=== PATIENT | male | born 1965 | race Caucasian/White ===

== ENCOUNTER 2018-02-27 09:34 | Emergency (ER) | payer BC, SELFPAY ==
[2018-02-27 09:41] VITALS: BP 142/94; PULSE 70; RESP 16; TEMP 36.8; O2SAT 98
--- NOTE | 2018-02-27 10:01 | DI.REPORT_ITS ---
SYMPTOM/DIAGNOSIS: LEFT KNEE PAIN WITH HYPERFLEXION. LEFT KNEE: 3 views. No acute fracture or dislocation is identified. There does appear to be a small joint effusion. Mild spurring is seen at the posterior patella. No radiopaque foreign bodies are seen in the soft tissues. IMPRESSION: No acute abnormality.
[2018-02-27] MEDS: Lidocaine 5% Patch 1 PATCH TP (10:55)
--- NOTE | 2018-02-27 10:55 | ED.GENADUL ---
Disposition Clinical Impression: Left knee pain Disposition: HOME Condition: Good Instructions: Knee Pain (ED), RICE Therapy (ED) Additional Instructions: Please take medication as directed. Please use the knee splint as directed. Please ambulate carefully, as it is my recommendation to use crutches. Please follow-up with the orthopedic surgeon as soon as possible. If you notice any worsening of your symptoms, or any new symptoms such as vomiting, diarrhea, fever, chills, shortness of breath, chest pain, numbness, weakness, or fainting , please return immediately to the emergency department for reevaluation. Please follow up with your primary care provider as soon as possible for reassessment and reevaluation. As always, it was a pleasure participating in your medical care today. Prescriptions: Acetaminophen [Tylenol Extra Strength] 1,000 mg PO Q6H 5 Days #60 tab Lidocaine 5% [Lidoderm 5% Patch] 1 each TP Q24H #4 patch Referrals: Kristofer Wilson MD [ [facility] STAFF PHYSICIAN] - Medical Decision Making - Medical Decision Making This is a very pleasant 52-year-old male who presents today for evaluation of left knee pain. He had bilateral knee pain for the last month, most likely secondary to arthritis however yesterday he fell and hyperflexed his knee. Physical exam demonstrates notable pain on Nati's test, but no severe joint laxity for the knee. And concern for meniscal injury, and potentially a posterior cruciate ligament injury secondary to the mechanism. The patient is refusing any Motrin secondary to his history of GI ulcers. X-ray reveals no acute fracture. However with his exam I am concerned for meniscal and ligamentous injury. He is able to ambulate without significant difficulty. 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 Had a long discussion with him regarding the importance of ease with his knee, and avoiding any movements that may exacerbate it he understands. I did offer crutches but he does not want these as he still needs to go to work today. I will offer a hinged knee splint for some added support. Lidoderm patch has notably improved his symptoms and he will be sent home with a prescription for this and Tylenol. Discussed the importance of frequent ice, and close orthopedic follow-up for potential knee arthroscopy. The patient understands. He is requesting Dr. Wilson, specifically since his sees him. We discussed red flags which returned the patient understands. I have extensively reviewed the treatment plan and discharge instructions with the patient. I have addressed all patient concerns at this time. The patient was made aware of what symptoms to monitor for that would warrant a return to the emergency department. Discussed the plan with the patient, they demonstrate verbal understanding and agreement with our assessment and plan at this time. History of Present Illness - General Chief complaint: Orthopedic Stated complaint: KNEE INJURY Time Seen by Provider: 02/27/18 10:01 - History of Present Illness Initial comments: This is a pleasant 52-year-old male with a past medical history of diabetes mellitus, traumatic subdural hematoma, GI ulcers who presents today for left knee pain. He has a history of an arthroscopic procedure on his knees in the past for arthritis, but he does not recall which. He presents today with left knee pain for the last month. It has been bilateral, however yesterday he fell, and had hyperflexion of his left knee. Since then he has had severe pain, clicking when he walks, and his knee has been giving out on him. Pain is worsened with ambulation and movement. It is improved by Tylenol. He does not take Motrin secondary to his history of ulcers. He denies any numbness, tingling, hip pain, calf pain, or foot pain. He denies any other associated symptoms. He denies chest pain, rash, fever, headache, vision change, vomiting or diarrhea. He denies any IV or illicit drug use. He denies any pertinent past family history. Patient has no other complaints at this time. - Related Data Saccharomyces Boulardii [Digestive Probiotic] 250 mg PO BID 12/17/14 Cetirizine HCl [Zyrtec] 10 mg PO HS 06/16/16 Mupirocin 2% Oint. [Bactroban 2% Ointment] 1 gm TP TID #1 tube 06/18/16 Ondansetron HCl 4 mg PO Q6H PRN #30 tab-cap 06/20/16 Blood Sugar Diagnostic [Freestyle Lite Test Strips] 1 each MC BID #100 strip 09/01/16 Lancets [Freestyle Lancets] 1 each MC BID #200 each 12/22/16 Cyclobenzaprine HCl 10 mg PO HS #30 tab-cap 01/26/17 Allopurinol 2 tab PO DAILY #180 tab-cap 09/19/17 Pantoprazole Sodium 40 mg PO DAILY #90 tab-cap 09/19/17 Tamsulosin HCl 0.4 mg PO HS #90 tab-cap 09/19/17 Liraglutide [Victoza 2-Miguel] 1.2 mg SQ DAILY #1 pack 10/05/17 Insulin Glargine [Lantus Solostar] 45 units SC DAILY #1 box 10/26/17 Pen Needle, Diabetic [Ultra-Fine Original Pen Needle] 1 each MC BID #100 10/26/17 Acetaminophen [Tylenol Extra Strength] 1,000 mg PO Q6H 5 Days #60 tab 02/27/18 Lidocaine 5% [Lidoderm 5% Patch] 1 each TP Q24H #4 patch 02/27/18 Allergies Allergy/AdvReac Type Severity Reaction Status Date / Time ciprofloxacin [From Cipro] Allergy Intermediate Skin Rash Unverified 02/27/18 09:47 nitroglycerin AdvReac Severe 6 sec Unverified 02/27/18 09:47 heart pause zolpidem AdvReac Severe Hallucinati Unverified 02/27/18 09:47 ons fluoxetine AdvReac Intermediate Tremor Unverified 02/27/18 09:47 levetiracetam [From Keppra] AdvReac Intermediate Restless Unverified 02/27/18 09:47 Review of Systems Other: 10 point review of systems was performed, pertinent positives and negatives are noted in the history of present illness. Past Medical History - Past Medical History Medical history: diabetes sleep apnea Surgical history: appendectomy, cholecystectomy, EGD, other (gastric bypass) - Social History Alcohol use: occasionally Drug use: none General Exam - Other Other exam information: 1.Const: Well-nourished, Well-developed, appearing stated age 2.Eyes: PERRL, no conjunctival injection, and symmetrical lids. 3.ENT: Atraumatic external nose and ears. Moist MM. Neck: Symmetric, trachea midline, No thyromegaly. 4.CVS: +S1/S2, No murmurs or gallops. Peripheral pulses 2+ and equal in all extremities. Brisk capillary refill in all extremities. 5.RESP: Unlabored respiratory effort. Clear to auscultation bilaterally. No wheezes rales or rhonchi 6.GI: Soft, Nontender/Nondistended, No hepatosplenomegaly. No guarding or rebound. 7.MSK: Normocephalic/Atraumatic, Extremities w/o deformity No cyanosis or clubbing, patient demonstrates minimal pinpoint tenderness over the right lateral aspect of the left knee, as well as the posterior popliteal region. Mild pain with flexion extension. No significant laxity for the anterior drawer, or posterior drawer test. No significant laxity on lateral bending. Notable pain with Nati test, suggestive of meniscal injury. No significant swelling or erythema. 8.Skin: Warm, Dry. No rashes or lesions. 9.Neuro: machine printer II-XII grossly intact. Sensation grossly intact, no focal neurologic deficits. 10.Psych: (AAO) x3. Appropriate mood and affect Course Vital Signs - 24 hr 02/27/18 09:41 Temperature 36.8 C Pulse 70 Respiratory 16 Rate Blood Pressure 142/94 Pulse Oximetry 98
--- NOTE | 2018-02-27 10:58 | ED.GENADUL_ITS ---
Disposition Clinical Impression: Left knee pain Disposition: HOME Condition: Good Instructions: Knee Pain (ED), RICE Therapy (ED) Additional Instructions: Please take medication as directed. Please use the knee splint as directed. Please ambulate carefully, as it is my recommendation to use crutches. Please follow-up with the orthopedic surgeon as soon as possible. If you notice any worsening of your symptoms, or any new symptoms such as vomiting, diarrhea, fever, chills, shortness of breath, chest pain, numbness, weakness, or fainting , please return immediately to the emergency department for reevaluation. Please follow up with your primary care provider as soon as possible for reassessment and reevaluation. As always, it was a pleasure participating in your medical care today. Prescriptions: Acetaminophen [Tylenol Extra Strength] 1,000 mg PO Q6H 5 Days #60 tab Lidocaine 5% [Lidoderm 5% Patch] 1 each TP Q24H #4 patch Referrals: Kristofer Wilson MD [ [facility] STAFF PHYSICIAN] - Medical Decision Making - Medical Decision Making This is a very pleasant 52-year-old male who presents today for evaluation of left knee pain. He had bilateral knee pain for the last month, most likely secondary to arthritis however yesterday he fell and hyperflexed his knee. Physical exam demonstrates notable pain on Nati's test, but no severe joint laxity for the knee. And concern for meniscal injury, and potentially a posterior cruciate ligament injury secondary to the mechanism. The patient is refusing any Motrin secondary to his history of GI ulcers. X- ray reveals no acute fracture. However with his exam I am concerned for meniscal and ligamentous injury. He is able to ambulate without significant difficulty. 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 Had a long discussion with him regarding the importance of ease with his knee, and avoiding any movements that may exacerbate it he understands. I did offer crutches but he does not want these as he still needs to go to work today. I will offer a hinged knee splint for some added support. Lidoderm patch has notably improved his symptoms and he will be sent home with a prescription for this and Tylenol. Discussed the importance of frequent ice, and close orthopedic follow-up for potential knee arthroscopy. The patient understands. He is requesting Dr. Wilson, specifically since his sees him. We discussed red flags which returned the patient understands. I have extensively reviewed the treatment plan and discharge instructions with the patient. I have addressed all patient concerns at this time. The patient was made aware of what symptoms to monitor for that would warrant a return to the emergency department. Discussed the plan with the patient, they demonstrate verbal understanding and agreement with our assessment and plan at this time. History of Present Illness - General Chief complaint: Orthopedic Stated complaint: KNEE INJURY Time Seen by Provider: 02/27/18 10:01 - History of Present Illness Initial comments: This is a pleasant 52-year-old male with a past medical history of diabetes mellitus, traumatic subdural hematoma, GI ulcers who presents today for left knee pain. He has a history of an arthroscopic procedure on his knees in the past for arthritis, but he does not recall which. He presents today with left knee pain for the last month. It has been bilateral, however yesterday he fell, and had hyperflexion of his left knee. Since then he has had severe pain, clicking when he walks, and his knee has been giving out on him. Pain is worsened with ambulation and movement. It is improved by Tylenol. He does not take Motrin secondary to his history of ulcers. He denies any numbness, tingling, hip pain, calf pain, or foot pain. He denies any other associated symptoms. He denies chest pain, rash, fever, headache, vision change, vomiting or diarrhea. He denies any IV or illicit drug use. He denies any pertinent past family history. Patient has no other complaints at this time. - Related Data Saccharomyces Boulardii [Digestive Probiotic] 250 mg PO BID 12/17/14 Cetirizine HCl [Zyrtec] 10 mg PO HS 06/16/16 Mupirocin 2% Oint. [Bactroban 2% Ointment] 1 gm TP TID #1 tube 06/18/16 Ondansetron HCl 4 mg PO Q6H PRN #30 tab-cap 06/20/16 Blood Sugar Diagnostic [Freestyle Lite Test Strips] 1 each MC BID #100 strip 10/13 Lancets [Freestyle Lancets] 1 each MC BID #200 each 12/22/16 Cyclobenzaprine HCl 10 mg PO HS #30 tab-cap 01/26/17 Allopurinol 2 tab PO DAILY #180 tab-cap 09/19/17 Pantoprazole Sodium 40 mg PO DAILY #90 tab-cap 09/19/17 Tamsulosin HCl 0.4 mg PO HS #90 tab-cap 09/19/17 Liraglutide [Victoza 2-Miguel] 1.2 mg SQ DAILY #1 pack 10/05/17 Insulin Glargine [Lantus Solostar] 45 units SC DAILY #1 box 10/26/17 Pen Needle, Diabetic [Ultra-Fine Original Pen Needle] 1 each MC BID #100 Acetaminophen [Tylenol Extra Strength] 1,000 mg PO Q6H 5 Days #60 tab 02/27/18 Lidocaine 5% [Lidoderm 5% Patch] 1 each TP Q24H #4 patch 02/27/18 Allergies Allergy/AdvReac Type Severity Reaction Status Date / Time ciprofloxacin [From Cipro] Allergy Intermediate Skin Rash Unverified 02/27/18 09 :47 nitroglycerin AdvReac Severe 6 sec Unverified 02/27/18 09:47 heart pause zolpidem AdvReac Severe Hallucinati Unverified 02/27/18 09:47 ons fluoxetine AdvReac Intermediate Tremor Unverified 02/27/18 09:47 levetiracetam [From Keppra] AdvReac Intermediate Restless Unverified 02/27/18 09 :47 Review of Systems Other: 10 point review of systems was performed, pertinent positives and negatives are noted in the history of present illness. Past Medical History - Past Medical History Medical history: diabetes sleep apnea Surgical history: appendectomy, cholecystectomy, EGD, other (gastric bypass) - Social History Alcohol use: occasionally Drug use: none General Exam - Other Other exam information: 1.Const: Well-nourished, Well-developed, appearing stated age 2.Eyes: PERRL, no conjunctival injection, and symmetrical lids. 3.ENT: Atraumatic external nose and ears. Moist MM. Neck: Symmetric, trachea midline, No thyromegaly. 4.CVS: +S1/S2, No murmurs or gallops. Peripheral pulses 2+ and equal in all extremities. Brisk capillary refill in all extremities. 5.RESP: Unlabored respiratory effort. Clear to auscultation bilaterally. No wheezes rales or rhonchi 6.GI: Soft, Nontender/Nondistended, No hepatosplenomegaly. No guarding or rebound. 7.MSK: Normocephalic/Atraumatic, Extremities w/o deformity No cyanosis or clubbing, patient demonstrates minimal pinpoint tenderness over the right lateral aspect of the left knee, as well as the posterior popliteal region. Mild pain with flexion extension. No significant laxity for the anterior drawer , or posterior drawer test. No significant laxity on lateral bending. Notable pain with Nati test, suggestive of meniscal injury. No significant swelling or erythema. 8.Skin: Warm, Dry. No rashes or lesions. 9.Neuro: it applications analyst II-XII grossly intact. Sensation grossly intact, no focal neurologic deficits. 10.Psych: (AAO) x3. Appropriate mood and affect Course Vital Signs - 24 hr 02/27/18 09:41 Temperature 36.8 C Pulse 70 Respiratory 16 Rate Blood Pressure 142/94 Pulse Oximetry 98
[2018-02-27 11:21] VITALS: BP 145/86; PULSE 78; RESP 16; TEMP 36.7; O2SAT 99
== END 2018-02-27 11:26 | disposition home or self-care (01) ==
PROVIDERS: Emergency Provider Student in an Organized Health Care Education/Training Program; PCP Family Medicine
DX: M25.562 Pain in left knee (principal); E11.9 Type 2 diabetes mellitus without complications; Z79.4 Long term (current) use of insulin
CPT/HCPCS: 29505; 73562; 99283; L1810

== ENCOUNTER 2018-04-24 13:19 | Outpatient (CLI) | payer BC, SELFPAY ==
--- NOTE | 2018-04-24 10:45 | DI.RAD_ITS ---
SYMPTOM/DIAGNOSIS: RIGHT KNEE PAIN. OA RIGHT KNEE RIGHT KNEE: There is no evidence of gross joint space narrowing. Periarticular hypertrophic spurring is identified and a small calcification is noted adjacent to the lateral condyle of the femur, likely representing an old collateral ligament injury There are degenerative changes involving the patellofemoral joint. SUMMARY: Findings consistent with moderate DJD.
== END 2018-04-24 13:39 ==
PROVIDERS: PCP Family Medicine; Visit Provider Family Medicine
DX: M25.561 Pain in right knee (principal); M17.11 Unilateral primary osteoarthritis, right knee
CPT/HCPCS: 73564

== ENCOUNTER 2018-06-03 15:08 | Outpatient (CLI) | payer BC, SELFPAY ==
[2018-06-03 19:01] LABS: Hemoglobin A1C 7.8 % (4.5-6.2)
== END 2018-06-03 15:28 ==
PROVIDERS: PCP Family Medicine; Visit Provider Family Medicine
DX: E11.9 Type 2 diabetes mellitus without complications (principal)
CPT/HCPCS: 36415; 83036

== ENCOUNTER 2018-07-02 07:04 | Outpatient (CLI) | payer BC, SELFPAY ==
[2018-07-02 08:15] LABS: Abs Immature Grans 0.03 k/cumm (0.0-0.09); Absolute Basophil Count 0.04 k/cumm (0.0-0.2); Absolute Eosinophil Count 0.09 k/cumm (0.0-0.7); Absolute Lymphocyte Count 1.14 k/cumm (1.2-3.4); Absolute Monocyte Count 0.35 k/cumm (0.11-0.7); Absolute Neutrophil Count 3.19 k/cumm (1.2-6.7); Basophils % 0.8; Eosinophils % 1.9; HCT 44.1 % (40.0-50.0); Immature Grans % 0.6; Lymphocytes % 23.6; Mean Corpuscular Hemoglobin 32.8 pg (27.0-33.0); Mean Corpuscular Volume 96.5 fL (80-95); Mean Platelet Volume 9.7 fL (8.0-11.0); Monocytes % 7.2; Neutrophils % 65.9; Platelet Count 217 x1000/uL (130-400); RBC 4.57 m/cumm (4.50-6.00); RBC Distribution Width 11.7 % (11.8-14.1); White Blood Cell Count 4.84 k/cumm (4.4-10.8)
[2018-07-02 08:30] LABS: Bilirubin Negative (Negative); Blood Negative (Negative); Clarity Clear; Glucose 100 mg/dL (Negative); Ketones Trace mg/dL (Negative); Leukocyte Esterase Negative (Negative); Nitrite Negative (Negative); Specific Gravity >= 1.030 (1.005-1.025); Urobilinogen 0.2 EU/dL (Up TO 0.2); pH 5.5 (5-8)
[2018-07-02 08:57] LABS: ALT 64 U/L (12-78); AST 25 U/L (15-37); Albumin 4.4 g/dL (3.4-5.0); Alkaline Phosphatase 52 U/L (46-116); Anion Gap 11.6 mmol/L (3-11); BUN 19 mg/dL (7-18); Bilirubin, Total 0.4 mg/dL (0.2-1.0); CO2 27.4 mmol/L (21.0-32.0); CREATININE 0.88 mg/dL (0.70-1.30); Calcium 9.3 mg/dL (8.5-10.1); Chloride 100 mmol/L (98-107); Glucose 218 mg/dL (70-100); Potassium 4.3 mmol/L (3.5-5.1); Sodium 139 mmol/L (136-145); TSH 1.58 uIU/mL (0.358-3.74); Total Protein 7.6 g/dL (6.4-8.2)
== END 2018-07-02 07:24 ==
PROVIDERS: PCP Family Medicine; Visit Provider Family Medicine
DX: R53.83 Other fatigue (principal)
CPT/HCPCS: 36415; 80053; 81003; 84443; 85025

== ENCOUNTER 2018-08-05 07:02 | Outpatient (CLI) | payer BC, SELFPAY ==
[2018-08-05 14:37] LABS: Anion Gap 11.1 mmol/L (3-11); BUN 16 mg/dL (7-18); CO2 27.9 mmol/L (21.0-32.0); CREATININE 1.03 mg/dL (0.70-1.30); Calcium 9.8 mg/dL (8.5-10.1); Chloride 102 mmol/L (98-107); Glucose 205 mg/dL (70-100); Potassium 4.1 mmol/L (3.5-5.1); Sodium 141 mmol/L (136-145)
== END 2018-08-05 07:22 ==
PROVIDERS: PCP Family Medicine; Visit Provider Internal Medicine Gastroenterology
DX: K31.84 Gastroparesis (principal); D12.3 Benign neoplasm of transverse colon
CPT/HCPCS: 36415; 80048

== ENCOUNTER 2019-02-05 08:16 | Outpatient (CLI) | payer BC, SELFPAY ==
[2019-02-05 09:45] LABS: Hemoglobin A1C 10.1 % (4.5-6.2)
[2019-02-05 10:14] LABS: ALT 65 U/L (12-78); AST 24 U/L (15-37); Albumin 4.2 g/dL (3.4-5.0); Alkaline Phosphatase 64 U/L (46-116); Anion Gap 11.4 mmol/L (3-11); BUN 16 mg/dL (7-18); Bilirubin, Total 0.5 mg/dL (0.2-1.0); CO2 28.6 mmol/L (21.0-32.0); CREATININE 0.91 mg/dL (0.70-1.30); Calcium 9.3 mg/dL (8.5-10.1); Chloride 98 mmol/L (98-107); Glucose 314 mg/dL (70-100); Potassium 4.9 mmol/L (3.5-5.1); Sodium 138 mmol/L (136-145); Total Protein 7.1 g/dL (6.4-8.2)
== END 2019-02-05 08:36 ==
PROVIDERS: PCP Family Medicine; Visit Provider Family Medicine
DX: E11.9 Type 2 diabetes mellitus without complications (principal)
CPT/HCPCS: 36415; 80053; 83036

== ENCOUNTER 2019-07-20 09:32 | Observation (INO) | payer BC, SELFPAY ==
[2019-07-20] VITALS (9 sets, daily range): BP systolic 130–158; BP diastolic 76–100; PULSE 66–83; RESP 14–18; TEMP 36.3–37.2; O2SAT 92–97
[2019-07-20] MEDS: Lactated Ringers 1,000 ML 80 ML IV ×2 (11:28→14:52)
[2019-07-20] MEDS: Ondansetron 4 MG/2 ML VIAL IVP (11:38)
--- NOTE | 2019-07-20 11:54 | HPE_ITS ---
Date of service: 07/20/19 Time of Service: 11:54 Assessment and Plan Assessment and plan (1) Esophageal foreign body: Status: Acute Assessment and plan: I advised EGD with removal of foreign body and p ossible dilation. The procedure and risks of perforation with need for surgery discussed. Dilation may not improve symptoms or may need to be repeated in the future. May consider biopsy for eosinophilic esophagitis. The patient agrees to proceed. History of Present Illness Narrative: This patient presented to the [facility] last night after feeling that a piece of steak become stuck in his esophagus. The patient was given glucagon and soda without improvement. He was able to control secretions and swallow small months of water so was discharged home with close follow-up planrd. Today he reports that he is still unable to swallow significant amounts of water so due to concerns about dehydration and an ongoing esophageal foreign body he is brought in for upper endoscopy. The patient's history is significant for a Oren fundoplication with good control of his reflux. He is chronically on a PPI for a history of a perforated ulcer for which he had a distal gastrectomy. He does report that food sometimes becomes stuck in his esophagus but will pass after a minute or so. This commonly occurs with rice or meat and happens infrequently, perhaps once a month. He has not had a prior dilation. 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 last gouty attack 2003; on allopurinol H/O renal calculi (Chronic) h/o subdural hematoma after head trauma (Chronic) [place] [facility] [place] Obstructive sleep apnea (Chronic) Osteoarthritis (Chronic) Surgical History (Updated 05/30/18 @ 21:25 by Edward Rojas MD) Colonoscopy - [facility] (03/27/13) DR. DENT Social History (Updated 04/24/18 @ 09:51 by Melissa Gibson) Smoking/Tobacco Use Status: Never Drug use: Never Substance use type: does not use Do you feel safe at home: Yes Do you feel safe in your relationship?: Yes Meds Home Medications and Allergies Home Medications Medication Instructions Recorded Confirmed Type Digest Probiotic (S.boulardii) 250 mg PO BID 12/17/14 07/20/19 History Zyrtec 10 mg PO HS 06/16/16 07/20/19 History mupirocin 1 gm TOPICAL TID #1 tube 06/18/16 07/20/19 Rx FreeStyle Lite Strips #100 strip 09/01/16 07/17/19 History lancets [FreeStyle Lancets] #200 ea 12/22/16 07/17/19 History cyclobenzaprine 10 mg PO HS #30 tab-cap 01/26/17 07/20/19 History baclofen 10 mg tablet 10 mg PO TID PRN #60 tab 04/25/18 07/20/19 Rx clindamycin phosphate 1 % topical 1 applic TP BID #60 ml 10/01/18 07/17/19 Rx solution allopurinol 100 mg tablet 200 mg PO DAILY #180 tab-cap 10/23/18 07/17/19 Rx ondansetron HCl 4 mg tablet 4 mg PO Q6H PRN #30 tab-cap 10/23/18 07/20/19 Rx pantoprazole 40 mg tablet,delayed 40 mg PO DAILY #90 tab-cap 10/23/18 07/20/19 Rx release pen needle, diabetic 29 gauge x #100 each 10/23/18 07/17/19 Rx 1/2 tamsulosin 0.4 mg capsule 0.4 mg PO HS #90 tab-cap 10/23/18 07/20/19 Rx Domperidone 10 mg PO BID 02/07/19 07/20/19 History flash glucose scanning reader #1 each 02/07/19 07/17/19 Rx liraglutide 0.6 mg/0.1 mL (18 mg/3 See Rx Instructions SC .COMPLEX #9 05/07/19 07/20/19 Rx mL) subcutaneous pen injector ml flash glucose sensor #3 each 07/17/19 07/17/19 Rx insulin glargine 100 unit/mL (3 50 unit SUB-Q DAILY #15 ml 07/17/19 07/20/19 Rx mL) subcutaneous pen acetaminophen [Tylenol Extra 1,000 mg PO Q6H PRN 07/20/19 07/20/19 History Strength] allopurinol 200 mg PO DAILY 07/20/19 07/20/19 History Allergies Allergy/AdvReac Type Severity Reaction Status Date / Time ciprofloxacin [From Cipro] Allergy Intermediate Skin Rash Verified 07/17/19 16:04 nitroglycerin AdvReac Severe 6 sec Verified 07/17/19 16:04 heart pause zolpidem AdvReac Severe Hallucinati Verified 07/17/19 16:04 ons fluoxetine AdvReac Intermediate Tremor Verified 07/17/19 16:04 levetiracetam [From Keppra] AdvReac Intermediate Restless Verified 07/17/19 16:04 sulfamethoxazole AdvReac Intermediate Verified 07/17/19 16:04 [From Bactrim] trimethoprim [From Bactrim] AdvReac Intermediate Verified 07/17/19 16:04 Exam Const General: healthy appearing and not in acute distress Nutritional Appearance: well nourished Orientation: oriented x3 HENMT Head: normal to inspection Eyes Sclera: sclerae normal Pupils: PERRL Neck Neck: no lymphadenopathy Resp Effort & Inspection: normal respiratory effort Auscultation: clear to auscultation bilaterally Cardio Rate: regular rate Rhythm: regular rhythm GI Inspection: non-distended Palpation: soft, no hepatosplenomegaly, no hernias and nontender Skin General skin exam: no rashes or lesions noted Neuro General: alert Cognition: normal cognition Extrem General: normal to inspection Psych Affect: normal affect Attitude: cooperative Results Last Vital Signs Temp 98.2 F 07/20/19 10:59 Pulse 77 07/20/19 10:59 Resp 16 07/20/19 10:59 BP 158/96 H 07/20/19 10:59 Pulse Ox 97 07/20/19 10:59
--- NOTE | 2019-07-20 12:03 | PDOC.DSDIS_ITS ---
Discharge Plan Disposition Patient Disposition: HOME Condition: Good Discharge Details Reason For Visit: FOREIGN BODY Admit Date/Time: 07/20/19 10:17 Admit Provider: Mesha Myers Attending Provider: Mesha Myers Primary Care Provider: Edward Rojas [facility] Course Hospital Course: The patient was taken to the OR and had partial clearing of food within the esophagus. He was returned to med/surg and had a trial of clear liquids then was discharged to home. Home Meds and New Rx's Prescriptions: Continued Lantus Solostar U-100 Insulin 100 unit/mL (3 mL) insulin pen 50 unit Sub-Q DAILY Qty: 15 RF: 11 (DME) FreeStyle Zaid 14 Day Sensor Kit See Rx Instructions .ROUTE .MEDSUPPLY Qty: 3 RF: 4 baclofen 10 mg tablet 10 mg PO TID PRN (Reason: For muscle spasm) Qty: 60 RF: 2 clindamycin phosphate 1 % solution 1 applic TP BID Qty: 60 RF: 3 Domperidone 10 mg PO BID RF: 0 (DME) FreeStyle Zaid 14 Day [place]ess misc See Rx Instructions .ROUTE .MEDSUPPLY Qty: 1 RF: 4 Digest Probiotic (S.boulardii) 250 MG capsule 250 mg PO BID RF: 0 (DME) FreeStyle Lite Strips 1 EACH strip 1 ea Miscellaneous BID Qty: 100 RF: 4 (DME) lancets [FreeStyle Lancets] 1 EACH misc 1 ea Miscellaneous BID Qty: 200 RF: 4 cyclobenzaprine 10 MG tablet 10 mg PO HS Qty: 30 RF: 2 (DME) pen needle, diabetic [BD Ultra-Fine Orig Pen Needle] 29 gauge x 1/2 needle 1 ea Miscellaneous BID Qty: 100 RF: 4 pantoprazole 40 mg tablet,delayed release (DR/EC) 40 mg PO DAILY Qty: 90 RF: 4 allopurinol 100 mg tablet 200 mg PO DAILY Qty: 180 RF: 4 tamsulosin 0.4 mg capsule 0.4 mg PO HS Qty: 90 RF: 3 ondansetron HCl 4 mg tablet 4 mg PO Q6H PRN Qty: 30 RF: 2 Victoza 3-Miguel 0.6 mg/0.1 mL (18 mg/3 mL) pen injector See Rx Instructions SC .COMPLEX Qty: 9 RF: 4 Zyrtec 10 MG capsule 10 mg PO HS RF: 0 mupirocin 22 GM ointment 1 gm Topical TID Qty: 1 RF: 0 allopurinol 100 mg Tablet 200 mg PO DAILY RF: 0 acetaminophen [Mapap Extra Strength] 500 MG tablet 1,000 mg PO Q6H PRNRF: 0 Discharge Instructions Additional Instructions: Findings: Particles of food were impacted in the esophagus. A portion was pushed down into the stomach but due to the volume and soft nature of the food, it could not all be cleared. This should pass now that the passage has been partly cleared. Follow up: Keep your appointment as scheduled with Dr. Armstrong Please call if you develop: fevers >101.5 Nausea or Vomiting Chest or Abdominal pain that is not transient DAY SURGERY UNIT POST EGD INSTRUCTIONS 1. Because there will be medication in your system for the next 24 hours, you may feel a little sleepy. Your coordination will be affected. Therefore: a. Do not drive or operate dangerous equipment for 24 hours. b. Do not drink alcohol beverages for 24 hours (not even beer). c. Plan to go home and rest for the day. 2. Generally there are no restrictions on your activity after a day or so has gone by, but you may feel a bit fatigued for a few days. 3 After you arrive home you may have a light meal and return to a normal diet as you can tolerate it without feeling sick to your stomach. 4. After surgery, you may feel pain or discomfort. This should be only transient, but if it persists please contact your doctor. 5. If there are any questions regarding the findings of your procedure, please feel free to contact your doctor. 6. If you are unable to contact your doctor with a problem, contact the hospital at [phone]. 7. Continue all your regular medications unless directed otherwise. I understand the above instructions and have no questions. Signature of Patient or Responsible Adult Escort Date/Time Name of Responsible Adult Escort Signature of Nurse Date/Time Activity:: Activity as Tolerated Equipment/Supplies:: No Equipment Needed Diet:: Clears liquids today and then soft for two days Discharge Orders Discharge Orders: Discharge Order (Routine); Ordered 07/20/19 Ordered By: Mesha Myers DS: Diagnosis Discharge Diagnosis (1) Esophageal foreign body: Status: Acute
--- NOTE | 2019-07-21 09:02 | ENDO_ITS ---
DATE OF PROCEDURE July 20, 2019 PREOPERATIVE DIAGNOSIS Esophageal foreign body. POSTOPERATIVE DIAGNOSIS Esophageal foreign body. PROCEDURE EGD with removal of esophageal foreign body. SURGEON Mesha Myers M.D. ANESTHESIA General endotracheal. INDICATIONS This is 54-year-old man with fairly frequent dysphagia. This has been ongoing since laparoscopic Oren fundoplication several years ago. The food will usually pass after a minute or so. He had required an upper endoscopy about seven or eight years ago for an esophageal foreign body. He apparently has some esophageal dysmotility with the diagnosis of achalasia being considered by his hospital unit clerk. He was eating steak last evening and felt it become lodged. He has been able to control his secretions and take in very small sips of water. PROCEDURE DESCRIPTION The patient was placed supine on the operating table and after induction of general anesthetic was positioned up onto his left side. The scope was advanced into his esophagus under direct visualization. About half way down the esophagus, food was encountered. This was essentially stacked up in the distal half of the esophagus. It was actually fairly soft and I was able to pass the scope past it into his gastric remnant. The patient had a distal gastrectomy in the past. I was able to push a portion of the food bolus into the stomach, but it was not one complete piece. The food was fairly soft and would adhere to the side of the esophagus. I tried removing some with a Armas Net, but it would not open adequately to acquire any particles of significant volume. I also used cold forceps to drag some pieces into the stomach, but again, the pieces were so small and the volume of food large enough that this was not practically feasible. Since there was a clear passage, my hope was that I had cleared the major obstruction and the patient will be able to clear the residual food particles on his own. I did not see a significant distal esophageal stricture. There was some angulation at the GE junction perhaps from his prior Oren. The quality of the esophagus was slightly difficult to assess due to the food adherent to the wall. The patient tolerated the procedure and was stable to Recovery. The plan will be to see if he tolerates clear liquids, and if so discharge. He will follow up with his hospital unit clerk as scheduled previously. CC: Edward Rojas M.D. Pedro Armstrong D.O.
== END 2019-07-20 15:55 | disposition home or self-care (01) ==
PROVIDERS: Admitting Provider Surgery; PCP Family Medicine; Visit Provider Surgery
PROC: 0DC68ZZ Extirpation of Matter from Stomach, Via Natural or Artificial Opening Endoscopic (ICD-10-PCS; CPT 43247; principal; 2019-07-20 11:45)
DX: T18.108A Unspecified foreign body in esophagus causing other injury, initial encounter (principal); K22.2 Esophageal obstruction; R13.10 Dysphagia, unspecified; Z90.3 Acquired absence of stomach [part of]
CPT/HCPCS: 43247; 99236; G0378; J1100; J2405

== ENCOUNTER 2019-10-07 11:16 | Outpatient (CLI) | payer BC, SELFPAY ==
[2019-10-07 12:27] LABS: CREATININE 0.97 mg/dL (0.70-1.30)
== END 2019-10-07 11:36 ==
PROVIDERS: PCP Family Medicine; Visit Provider Family Medicine
DX: R13.19 Other dysphagia (principal); Z01.812 Encounter for preprocedural laboratory examination
CPT/HCPCS: 36415; 82565

== ENCOUNTER 2019-10-08 07:17 | Outpatient (CLI) | payer BC, SELFPAY ==
--- NOTE | 2019-10-08 12:45 | DI.CT_ITS ---
EXAM: CT NECK W CLINICAL HISTORY: DYSPHAGIA LOCALIZED TO LEFT SIDE OF NECK, R13.10. TECHNIQUE: Imaging Protocol: Axial computed tomography images with coronal and sagittal reformatted images were created and reviewed CONTRAST MATERIAL: Intravenous: Omnipaque 350 Contrast volume:100 ml Contrast route:IV - Oral: No COMPARISON: No exams were available for comparison FINDINGS: Parotids/submandibular/thyroid gland: Normal. Lymphadenopathy: None. Carotids/Jugular: Mild calcification at the common carotid bulbs. No significant stenosis. Coronar y artery calcifications and mild aortic calcifications are also seen. Soft tissues: The floor the mouth is unremarkable. The epiglottis and vocal cords are within normal limits. Images through both lung apices are unremarkable. Sinuses: There has been previous sinus surgery. Mucosal thickening is seen throughout. There is a sma ll air-fluid level in the right maxillary sinus. The mastoid air cells appear clear. The orbits are u nremarkable. IMPRESSION: Sinus disease. No evidence of neck mass. RADIATION DOSE DELIVERED: DATA REPOSITORY: All CT scans at this facility are submitted to the National Radiology Data Registry (NRDR) Dose Index Registry (DIR) with the [employer] (A[employer]). RADIATION OPTIMIZATION: All CT scans at this facility use at least one of these dose optimization te chniques: automated exposure control; mA and/or kV adjustment per patient size (includes targeted exa ms where dose is matched to clinical indication); or iterative reconstruction.
[2019-10-08] MEDS: Omnipaque 350 MG/ML 100 ML BTL IV (13:20)
== END 2019-10-08 07:37 ==
PROVIDERS: PCP Family Medicine; Visit Provider Family Medicine
DX: R13.19 Other dysphagia (principal); I65.23 Occlusion and stenosis of bilateral carotid arteries
CPT/HCPCS: 70491; J3490

== ENCOUNTER 2020-07-16 04:19 | Outpatient (CLI) | payer BC, SELFPAY ==
--- NOTE | 2020-07-16 08:37 | DI.CT_ITS ---
EXAM: CT RENAL COLIC WO CLINICAL HISTORY: H/O CALCULUS OF KIDNEY,Z87.442. TECHNIQUE: Imaging Protocol: Axial computed tomography images with coronal and sagittal reformatted images were created and reviewed. COMPARISON: CT ABD PELVIS WITH CONTRAST from 06/16/2016 FINDINGS: ABDOMEN: Lung Bases: Normal where visualized. Liver: There is diffuse decreased attenuation of the liver consistent with fatty infiltration. No me asurable mass. Gallbladder and biliary tract: Status post cholecystectomy. No biliary ductal dilatation. Pancreas: Normal density, no abnormal calcifications or inflammatory process. Spleen: Normal. Kidneys: Normal size, contour and axis.2 mm nonobstructing stone in the inferior pole of the right ki dney. Nonobstructing stones seen in the left kidney. There are 2 each of which is approximately 2 m m in size. Stable cyst in the left kidney. No hydronephrosis. Adrenal glands: No mass is seen. Lymph nodes: Within normal limits. Abdominal Aorta: Abdominal portion non-dilated. Mild atherosclerosis. PELVIS: Bladder:Symmetric distention, no gross wall thickening. Bowel: No evidence of bowel obstruction. The patient is status post Daysi-en-Y procedure. There is a moderate amount of stool throughout the colon. No evidence of acute appendicitis. Diverticulosis i n the sigmoid colon but no evidence of acute diverticulitis. Peritoneal cavity: No ascites, collection or mesenteric inflammatory response Reproductive organs: Mildly enlarged prostate gland. Bones: Degenerative changes are present in the spine. Soft Tissues: Within normal limits. IMPRESSION: Bilateral nephrolithiasis. No evidence of hydronephrosis. RADIATION DOSE DELIVERED: 1,152.3mGy.cm Total DLP DATA REPOSITORY: All CT scans at this facility are submitted to the National Radiology Data Registry (NRDR) Dose Index Registry (DIR) with the [employer] (ACR). RADIATION OPTIMIZATION: All CT scans at this facility use at least one of these dose optimization te chniques: automated exposure control; mA and/or kV adjustment per patient size (includes targeted exa ms where dose is matched to clinical indication); or iterative reconstruction.
== END 2020-07-16 04:39 ==
PROVIDERS: PCP Nurse Practitioner; Visit Provider Urology
DX: N20.0 Calculus of kidney (principal)
CPT/HCPCS: 74176

== ENCOUNTER 2020-10-05 03:28 | Outpatient (CLI) | payer BC, SELFPAY ==
[2020-10-05 15:48] LABS: CREATININE 0.9 mg/dL (0.70-1.30)
[2020-10-05 15:56] LABS: Calculated LDL 103 mg/dL (<100); Cholesterol 183 mg/dL (<200); HDL Cholesterol 38 mg/dL (40-60); Triglyceride 213 mg/dL (<150)
== END 2020-10-05 03:29 | disposition home or self-care (01) ==
LOC: LBO 03:28
PROVIDERS: Family Medicine; PCP Nurse Practitioner; Visit Provider Nurse Practitioner
DX: I10 Essential (primary) hypertension (principal); Z13.6 Encounter for screening for cardiovascular disorders
CPT/HCPCS: 36415; 80061; 82565

== ENCOUNTER 2020-11-12 08:15 | Outpatient (CLI) | payer BC, SELFPAY ==
[2020-11-13 15:04] LABS: COVID-19 RT-PCR UVMMC Result Negative (Negative)
== END 2020-11-12 08:16 | disposition home or self-care (01) ==
PROVIDERS: PCP Nurse Practitioner; Visit Provider Nurse Practitioner
DX: Z20.822 Contact with and (suspected) exposure to COVID-19 (principal)
CPT/HCPCS: U0003

== ENCOUNTER 2020-11-17 09:08 | Outpatient (CLI) | payer BC, SELFPAY ==
[2020-11-18 11:52] LABS: COVID-19 RT-PCR UVMMC Result Negative (Negative)
== END 2020-11-17 09:09 | disposition home or self-care (01) ==
PROVIDERS: PCP Nurse Practitioner; Visit Provider Nurse Practitioner
DX: Z20.822 Contact with and (suspected) exposure to COVID-19 (principal)
CPT/HCPCS: U0003

== ENCOUNTER 2020-11-22 10:23 | Outpatient (CLI) | payer BC, SELFPAY ==
--- NOTE | 2020-11-22 09:45 | DI.RAD_ITS ---
EXAM: XR SHOULDER RT COMPLETE 2+V CLINICAL HISTORY: pain. TECHNIQUE: 2D digital imaging was performed. COMPARISON: No exams were available for comparison FINDINGS: There is no evidence of fracture or dislocation. However, on the outlet view there 2 calcifications in the subacromial space consistent with calcific tendinitis-bursitis. Degenerative changes in the A C joint as well as an osteophytic ridge seen on the undersurface of the acromion are most probably ca using impingement here. No osseous lesions. IMPRESSION: DATA REPOSITORY: RADIATION DOSE DELIVERED:
--- NOTE | 2020-11-22 09:45 | DI.RAD_ITS ---
EXAM: XR KNEE RT 4V AP,LAT,ANNA,PAT CLINICAL HISTORY: pain. TECHNIQUE: 2D digital imaging was performed. COMPARISON: No exams were available for comparison FINDINGS: There is no evidence of acute fracture or prominent joint effusion. However, there are significant o steoarthritic degenerative changes and there also multiple calcified intra-articular bodies evident w ithin the knee joint both anteriorly and posteriorly. There is also a calcification laterally, later al to the lateral femoral condyle. Also small calcification in the region of the medial collateral l igament. IMPRESSION: Degenerative changes. Multiple calcified loose intra-articular bodies evident DATA REPOSITORY: RADIATION DOSE DELIVERED:
--- NOTE | 2020-11-22 09:45 | DI.RAD_ITS ---
EXAM: XR KNEE LT 3V AP,LAT,ANNA CLINICAL HISTORY: pain. TECHNIQUE: 2D digital imaging was performed. COMPARISON: CR XR KNEE RT 4V AP,LAT,ANNA,PAT from 11/22/2020 FINDINGS: There is no evidence of fracture although there does appear to be a joint effusion. There is pre pat ellar soft tissue swelling also noted. No significant narrowing of the medial lateral compartments o n the weight-bearing view. No marginal osteophytes in the mediolateral compartments although there m arginal osteophytes in the patellofemoral compartment evident. IMPRESSION: DATA REPOSITORY: RADIATION DOSE DELIVERED:
== END 2020-11-22 10:24 | disposition home or self-care (01) ==
LOC: DIORS 10:23
PROVIDERS: PCP Nurse Practitioner; Referring Provider Nurse Practitioner; Visit Provider Physician Assistant Surgical
DX: M25.511 Pain in right shoulder (principal); M75.31 Calcific tendinitis of right shoulder; M25.562 Pain in left knee; M25.462 Effusion, left knee; M25.561 Pain in right knee; M17.11 Unilateral primary osteoarthritis, right knee; M23.41 Loose body in knee, right knee
CPT/HCPCS: 73562; 73030; 73564

== ENCOUNTER 2021-02-10 13:36 | Outpatient (REF) | payer BC, SELFPAY ==
[2021-02-10 21:07] LABS: Hemoglobin A1C 9.2 % (<5.7)
[2021-02-11 22:29] LABS: Cholesterol 205 mg/dL (<200); HDL Cholesterol 31 mg/dL (40-60); Triglyceride 613 mg/dL (<150)
[2021-02-12 13:19] LABS: LDL CHOLESTEROL 106 mg/dL (<100)
== END 2021-02-10 13:37 | disposition home or self-care (01) ==
LOC: LBN 13:36
PROVIDERS: PCP Nurse Practitioner; Visit Provider Nurse Practitioner
DX: E78.5 Hyperlipidemia, unspecified (principal); E11.9 Type 2 diabetes mellitus without complications; Z79.4 Long term (current) use of insulin
CPT/HCPCS: 80061; 83721; 83036

== ENCOUNTER → 2021-02-14 01:31 | Outpatient (CLI) | payer BC, SELFPAY ==
--- NOTE | 2021-02-14 08:26 | DI.RAD_ITS ---
Exam(s) XR TIB/FIB LT EXAM: XR TIB/FIB LT CLINICAL HISTORY: pain, hx surgery,m25.562. TECHNIQUE: 2D digital imaging was performed. COMPARISON: CR XR KNEE LT 3V AP,LAT,ANNA from 11/22/2020 CR XR KNEE LT 3V AP,LAT,ANNA from 11/22/2020 FINDINGS: There healed adjacent fracture sites at the midshaft of the tibia and fibula. No acute fractures dasha dent. No radiopaque foreign body. No osseous lesions seen IMPRESSION: DATA REPOSITORY: RADIATION DOSE DELIVERED:
== END ==
PROVIDERS: PCP Nurse Practitioner; Visit Provider Nurse Practitioner
DX: M25.562 Pain in left knee (principal); Z87.81 Personal history of (healed) traumatic fracture
CPT/HCPCS: 73590

== ENCOUNTER 2021-05-20 02:11 | Outpatient (CLI) | payer BC, SELFPAY ==
[2021-05-20 08:00] LABS: Hemoglobin A1C 6.4 % (<5.7)
[2021-05-20 09:05] LABS: Calculated LDL 61 mg/dL (<100); Cholesterol 125 mg/dL (<200); HDL Cholesterol 41 mg/dL (40-60); Triglyceride 115 mg/dL (<150)
== END 2021-05-20 02:12 | disposition home or self-care (01) ==
LOC: LBO 02:11
PROVIDERS: PCP Nurse Practitioner; Visit Provider Nurse Practitioner
DX: E78.5 Hyperlipidemia, unspecified (principal); E11.9 Type 2 diabetes mellitus without complications; Z79.4 Long term (current) use of insulin
CPT/HCPCS: 36415; 80061; 83036

== ENCOUNTER 2021-06-08 15:23 | Outpatient (REF) | payer BC, SELFPAY ==
[2021-06-10 07:52] LABS: COVID-19 RT-PCR UVMMC Result Positive (Negative)
== END 2021-06-08 15:24 | disposition home or self-care (01) ==
LOC: LBN 15:23
PROVIDERS: PCP Nurse Practitioner; Visit Provider Family Medicine
DX: Z20.822 Contact with and (suspected) exposure to COVID-19 (principal); R50.9 Fever, unspecified
CPT/HCPCS: U0003

== ENCOUNTER 2021-06-10 12:19 | Outpatient (CLI) | payer BC, SELFPAY ==
[2021-06-10] MEDS: Normal Saline 500 ML 30 ML IV (14:30)
[2021-06-10 14:37] VITALS: BP 126/80; PULSE 90; RESP 18; TEMP 37.3; O2SAT 94
[2021-06-10 14:42] VITALS: BP 135/87; PULSE 92; RESP 20; TEMP 36.8; O2SAT 98
[2021-06-10 14:54] VITALS: BP 111/81; PULSE 83; RESP 18; TEMP 36.7; O2SAT 95
[2021-06-10 15:24] VITALS: BP 117/82; PULSE 87; RESP 20; TEMP 36.3; O2SAT 95
[2021-06-10 16:03] VITALS: BP 123/86; PULSE 89; RESP 18; TEMP 36.9; O2SAT 95
== END 2021-06-10 12:20 | disposition home or self-care (01) ==
LOC: INF 12:20
PROVIDERS: PCP Nurse Practitioner; Visit Provider Family Medicine
DX: U07.1 COVID-19 (principal)
CPT/HCPCS: 96365

== ENCOUNTER 2021-10-13 09:00 | Outpatient (CLI) | payer BC, SELFPAY ==
--- NOTE | 2021-10-13 09:00 | RT.EKG_ITS ---
APPROVED REPORT Exam: Resting ECG Reason for Exam: annual Patient Location: O HR:70 bpm ECG Measurements Heart Rate 70 AXIS PA 194 P 44 QRSd 95 QRS 0 QT 402 T [id number] QTc 436 Conclusion Sinus rhythm...normal P axis, V-rate 60- 99 Normal Electrocardiogram
== END 2021-10-13 09:01 | disposition home or self-care (01) ==
LOC: DI.CM 09:03
PROVIDERS: PCP Nurse Practitioner; Visit Provider Nurse Practitioner
DX: Z00.00 Encounter for general adult medical examination without abnormal findings (principal)
CPT/HCPCS: 93010

== ENCOUNTER 2021-11-29 10:32 | Outpatient (CLI) | payer BC, SELFPAY ==
--- NOTE | 2021-11-29 09:30 | DI.RAD_ITS ---
Exam(s) XR SHOULDER RT COMPLETE 2+V EXAM: XR SHOULDER RT COMPLETE 2+V CLINICAL HISTORY: right shoulder pain. TECHNIQUE: 2D digital imaging was performed. COMPARISON: CR XR SHOULDER LT COMPLETE 2+V from 11/29/2021 FINDINGS: Two views No evidence of fracture or dislocation or abnormal soft tissue calcifications. There is some degener ative change evident the AC joint. Also osteophytic ridge on the undersurface of the acromion. Thes e findings may be causing an element of impingement upon the rotator cuff mechanism. On the axial images there is a sclerotic density noted in the humeral head. IMPRESSION: Findings as above. Recommend follow-up MRI. DATA REPOSITORY: RADIATION DOSE DELIVERED:
--- NOTE | 2021-11-29 09:30 | DI.RAD_ITS ---
Exam(s) XR SHOULDER LT COMPLETE 2+V EXAM: XR SHOULDER LT COMPLETE 2+V CLINICAL HISTORY: left shoulder pain. TECHNIQUE: 2D digital imaging was performed. COMPARISON: CR XR SHOULDER RT COMPLETE 2+V from 11/22/2020 FINDINGS: Two views There is no evidence of fracture or dislocation. There are no calcifications in subacromial space. There is, however, small 1-2 millimeter calcific density off the inferior tip of the osseous glenoid. This may represent loose body, labral calcification, or possibly sequelae of subtle Bankart lesion. There is no significant narrowing of the glenohumeral joint nor of the subacromial space. There ar e mild degenerative changes in the AC joint. IMPRESSION: DATA REPOSITORY: RADIATION DOSE DELIVERED:
== END 2021-11-29 10:33 | disposition home or self-care (01) ==
LOC: DIORS 10:32
PROVIDERS: PCP Nurse Practitioner; Referring Provider Nurse Practitioner; Visit Provider Student in an Organized Health Care Education/Training Program
DX: M25.511 Pain in right shoulder (principal); M25.811 Other specified joint disorders, right shoulder; M25.512 Pain in left shoulder; M85.812 Other specified disorders of bone density and structure, left shoulder
CPT/HCPCS: 73030

== ENCOUNTER 2021-12-29 01:19 | Outpatient (CLI) | payer BC, SELFPAY ==
--- NOTE | 2021-12-29 10:00 | DI.MRI_ITS ---
Exam(s) MR UPPER JOINT RT WO EXAM: MR UPPER JOINT RT WO CLINICAL HISTORY: R SHOULDER PAIN,tendinitis,traumatic tear,m75.21,s46.011a TECHNIQUE: Multiplanar multisequence MRI of the shoulder was performed. COMPARISON: MR MRI R UPPER JOINT WO CONT from 12/05/2013 CR XR SHOULDER LT COMPLETE 2+V from 11/29/2021 CR XR SHOULDER RT COMPLETE 2+V from 11/29/2021 FINDINGS: MARROW:There is no evidence of fracture, Hill-Sachs deformity, nor ominous osseous lesions. ROTATOR CUFF MECHANISM: AC JOINT/ACROMIUM: There are no significant degenerative changes in the AC joint, more so than 2014 a nd there is an element of impingement upon the supraspinatus tendon at this level. This is related t o hypertrophy tissue and undersurface osteophytes at this level. The undersurface of the acromion is flat. The acromion does not appear to be downsloping.. There is no evidence of os acromiale. Supraspinatus: There is a full-thickness tear of the most anterior fibers of the supraspinatus tendon on the anterior aspect of the greater tuberosity. This has slightly increased since the prior 2013 MRI study. There is, however, no retraction of the musculotendinous junction and no significant musc le atrophy. Infraspinatus: No obvious tear but there is now a focus of signal dropout associated with the infrasp inatus insertional fibers measuring approximately 12 by 4 by 5 millimeters, most probably calcific de nsity at this level, not evident on the 2014 study. Teres Minor: Intact. No evidence of tear nor muscle atrophy. Subscapularis/anterior cuff: Intact. No abnormal signal at the level of the multipennate insertional fibers. No significant tear nor atrophy. BICEPS TENDON: Normally position in the intertubercular groove. No evidence of tear. Some fluid noted in its tendon sheath consistent with element of tenosynovitis. LABRUM: There is some regularity of the superior labrum posterior to the biceps insertion consistent with probable SLAP-type tearing. There is no high signal associated with the labrum but the labral s urface is irregular. The posterior labrum appears intact. Anterior labrum appears intact. Inferior labrum appears intact as does the inferior glenohumeral ligament. No evidence of Bankart lesion. GLENOHUMERAL JOINT: No joint effusion. Some fluid is seen in the long head biceps tendon consistent with an element of tenosynovitis. No degenerative subarticular cysts. The inferior glenohumeral liga ment is intact. QUADRILATERAL SPACE: No evidence of mass in the region of the axillary nerve and dorsal circumflex hu meral vessels. Visualized triceps muscle at this level appears unremarkable. IMPRESSION: 1. There is an area of full-thickness tearing in the most anterior fibers of the supraspinatus-rotato r cuff tendon, this area of signal abnormality mildly increased in size from the prior MRI study of M ay 2014 there is no retraction musculotendinous junction and there is no significant supraspinatus mu scle atrophy. There is impingement at the AC joint level, particularly by downgoing osteophyte on th e clavicular side of the joint. 2. No obvious tear of the infraspinatus but there is a 12 x 4 x 5 millimeter focus of well-defined hy pointensity intimately associated with the insertional fibers of the infraspinatus upon the greater t uberosity, most probably an element of calcific tendinitis at this level. This finding was not evide nt on the 2013 MRI study. 3. Deficiency of the superior labrum noted towards its posterior aspect. Although this is not associ ated with abnormal high signal, possibility of a element of chronic SLAP-tear is consideration. Ther e is no evidence of paralabral cyst. No other areas of labral tearing identified. 4. Other findings as above DATA REPOSITORY:
== END 2021-12-29 01:39 ==
LOC: DI 01:20
PROVIDERS: PCP Nurse Practitioner; Visit Provider Student in an Organized Health Care Education/Training Program
DX: M75.21 Bicipital tendinitis, right shoulder (principal); S46.011A Strain of muscle(s) and tendon(s) of the rotator cuff of right shoulder, initial encounter
CPT/HCPCS: 73221

== ENCOUNTER 2022-02-20 04:11 | Outpatient (CLI) | payer BC, SELFPAY ==
[2022-02-20 14:28] LABS: Abs Immature Grans 0.03 10^3/uL (0.0-0.06); Absolute Basophil Count 0.04 10^3/uL (0.0-0.2); Absolute Eosinophil Count 0.15 10^3/uL (0.0-0.7); Absolute Lymphocyte Count 0.89 10^3/uL (1.2-3.4); Absolute Monocyte Count 0.49 10^3/uL (0.1-0.8); Absolute Neutrophil Count 3.69 10^3/uL (1.2-6.7); Basophils % 0.8; Eosinophils % 2.8; HGB 13.1 g/dL (13.5-17.5); Immature Grans % 0.6; Lymphocytes % 16.8; MCH 32.3 pg (27.0-33.0); MCHC 33.6 % (32.0-36.0); MCV 96 fL (80-95); MPV 9.7 fL (8.0-11.0); Monocytes % 9.3; Neutrophils % 69.7; Platelet Count 181 10^3/uL (130-400); RBC 4.05 10^6/uL (4.36-5.78); RDW 11.3 % (11.8-14.1); RDW-SD 39.8 fL; WBC 5.29 10^3/uL (4.4-10.8)
[2022-02-20 14:50] LABS: Hemoglobin A1C 7.7 % (<5.7)
[2022-02-20 15:17] LABS: Vitamin B12 593 pg/mL (193-986)
== END 2022-02-20 04:12 | disposition home or self-care (01) ==
LOC: LBO 04:11
PROVIDERS: PCP Nurse Practitioner; Visit Provider Nurse Practitioner
DX: E11.40 Type 2 diabetes mellitus with diabetic neuropathy, unspecified (principal); R53.83 Other fatigue; I10 Essential (primary) hypertension; R51.9 Headache, unspecified; R20.0 Anesthesia of skin
CPT/HCPCS: 36415; 82607; 83036; 84443; 85025

== ENCOUNTER 2022-04-06 03:03 | Outpatient (CLI) | payer BC, SELFPAY ==
[2022-04-06 12:26] LABS: Iron 116 ug/dL (65-175); Total Iron Binding Capacity 312 ug/dL (250-450); Transferrin Sat 37 % (20-55)
[2022-04-06 13:05] LABS: Ferritin 335 ng/mL (26-388); Potassium 4.6 mmol/L (3.5-5.1)
== END 2022-04-06 03:04 | disposition home or self-care (01) ==
LOC: LOS 03:03
PROVIDERS: PCP Nurse Practitioner; Visit Provider Family Medicine
DX: D64.9 Anemia, unspecified (principal); I10 Essential (primary) hypertension
CPT/HCPCS: 36415; 82565; 82728; 83540; 83550; 84132

== ENCOUNTER 2022-08-02 10:43 | Outpatient (CLI) | payer BC, SELFPAY ==
[2022-08-02 08:58] LABS: ALT 42 U/L (16-63); AST 18 U/L (15-37); Alkaline Phosphatase 63 U/L (46-116); Anion Gap 8.3 mmol/L (3-11); BUN 22 mg/dL (7-18); Bilirubin, Total 0.6 mg/dL (0.2-1.0); CO2 29.7 mmol/L (21.0-32.0); CREATININE 0.9 mg/dL (0.70-1.30); Calcium 9.3 mg/dL (8.5-10.1); Calculated LDL 110 mg/dL (<100); Chloride 100 mmol/L (98-107); Cholesterol 173 mg/dL (<200); Estimated GFR 98.38 (mL/min/1.73m2); Glucose 230 mg/dL (74-106); HDL Cholesterol 38 mg/dL (40-60); Sodium 138 mmol/L (136-145); Total Protein 7.6 g/dL (6.4-8.2); Triglyceride 125 mg/dL (<150)
[2022-08-02 09:12] LABS: COMMENT (LAB VIEW ONLY) 184.92 mg/dL; PROTEIN 15.7 mg/dL; Prot/Crea Ur Ratio 0.08
== END 2022-08-02 10:44 | disposition home or self-care (01) ==
LOC: LBO 10:44
PROVIDERS: PCP Family Medicine
DX: E11.9 Type 2 diabetes mellitus without complications (principal)
CPT/HCPCS: 36415; 80053; 80061; 82565; 84156

== ENCOUNTER 2022-12-21 14:12 | Outpatient (REF) | payer BC, SELFPAY ==
[2022-12-21 15:14] LABS: COMMENT (LAB VIEW ONLY) 178.24 mg/dL; Microalb ug/mg Crea 3.1 ug/mg Cr
== END 2022-12-21 14:13 | disposition home or self-care (01) ==
LOC: LBN 14:12
PROVIDERS: PCP Family Medicine; Visit Provider Family Medicine
DX: E11.9 Type 2 diabetes mellitus without complications (principal)
CPT/HCPCS: 82043; 82570

== ENCOUNTER 2023-09-04 22:33 | Emergency (ER) | payer BC, SELFPAY ==
[2023-09-04 22:37] VITALS: BP 175/95; PULSE 88; RESP 16; TEMP 36.8; O2SAT 98
--- NOTE | 2023-09-04 22:45 | RT.EKG_ITS ---
APPROVED REPORT Exam: Resting ECG Reason for Exam: dizziness Patient Location: E HR:83 bpm ECG Measurements Heart Rate 83 AXIS NJ 186 P 43 QRSd 96 QRS 15 QT 376 T 42 QTc 443 Conclusion Sinus rhythm...normal P axis, V-rate 60- 99 Physician: no stemi
[2023-09-04] MEDS: Lactated Ringers 1,000 ML 1000 ML IV (22:53)
[2023-09-04 22:55] LABS: Abs Immature Grans 0.04 10^3/uL (0.0-0.06); Absolute Basophil Count 0.05 10^3/uL (0.0-0.2); Absolute Lymphocyte Count 0.65 10^3/uL (1.2-3.4); Absolute Monocyte Count 0.55 10^3/uL (0.1-0.8); Absolute Neutrophil Count 6.82 10^3/uL (1.2-6.7); Basophils % 0.6; Eosinophils % 2.4; HCT 41.7 % (40.0-50.0); HGB 14.4 g/dL (13.5-17.5); Immature Grans % 0.5; Lactate 0.9 mmol/L (0.6-1.4); Lymphocytes % 7.8; MCH 32.5 pg (27.0-33.0); MCHC 34.5 % (32.0-36.0); MCV 94 fL (80-95); MPV 9.3 fL (8.0-11.0); Monocytes % 6.6; Neutrophils % 82.1; Platelet Count 205 10^3/uL (130-400); RBC 4.43 10^6/uL (4.36-5.78); RDW 11.5 % (11.8-14.1); RDW-SD 39.7 fL; WBC 8.31 10^3/uL (4.4-10.8)
--- NOTE | 2023-09-04 22:57 | W.ED.GENAD ---
HPI General Date/Time Provider Initiated Documentation: 09/04/23 22:34. HPI Narrative: This is a very pleasant 58-year-old male with an extensive past medical history of previous chronic subdural hematoma with cranial surgery and it is being monitored at [facility], and multiple abdominal surgeries, appendectomy, cholecystectomy, duodenal perforation, Oren procedure, Daysi-en-Y procedure with jejunostomy, previous abdominal wound infection, history of both gastroparesis and dumping syndrome ironically, diabetes on insulin, who presents today for evaluation of diarrhea. Patient states that he has had chronic diarrhea since last April. It is been persistent and watery in nature. Patient was on Mounjaro for control of his diabetes, there was concern that this may have been a component of his diarrhea. He stopped this just over a month ago. Unfortunately this did not change his symptoms. He comes in tonight because there is a notable worsening of his diarrhea. He had a cooked hamburger earlier today, and then a can of tuna fish this evening. Diarrhea began this morning and was profuse. He has had 25 episodes of watery diarrhea. The nature of the stooling has been consistent since April however the frequency is notably increased. Patient is scheduled to see Dr. Stewart his hand cutter apprentice later this month, but has not been able to yet. Of note on historical questioning, the patient does state that he did travel in early April to [place], where he did eat out some. The onset of the initial diarrhea appears to be around there somewhere. The diarrhea has never been bloody. Tonight he did get lightheaded but did not syncopized. He denies any vision changes headache or chest pain. He admits to some mild abdominal achiness but no focal abdominal pain. He denies any recent antibiotic use. Last antibiotic that was used was Augmentin over 2 months ago for sinus infection. Patient has no other complaints at this time. Related Data Home Medications Medication Instructions Recorded Confirmed cetirizine 10 mg capsule (Zyrtec) 10 mg PO HS 06/16/16 09/04/23 lancets 28 gauge (FreeStyle #200 ea 12/22/16 09/04/23 Lancets) Domperidone 10 mg PO BID 02/07/19 09/04/23 acetaminophen 500 mg tablet (Mapap 1,000 mg PO Q6H PRN 07/20/19 09/04/23 Extra Strength) triamcinolone acetonide 0.1 % 1 applic topical PRN 11/08/21 09/04/23 topical cream allopurinol 100 mg tablet 200 mg (2 x 100 mg) PO DAILY #180 09/30/22 09/04/23 tab-caps blood-glucose transmitter (Dexcom #1 ea 10/30/22 09/04/23 G6 Transmitter device) pregabalin 50 mg capsule (Lyrica) 50 mg PO BID #60 caps 12/21/22 09/04/23 blood-glucose meter,continuous #1 ea 01/05/23 09/04/23 (Dexcom G6 Marina Manager) blood-glucose sensor (Dexcom G6 #3 ea 01/05/23 09/04/23 Sensor device) cyclobenzaprine 10 mg tablet 10 mg PO TID PRN muscle spasm #14 04/12/23 09/04/23 tabs lisinopril 10 mg tablet 10 mg PO DAILY #90 tabs 05/16/23 09/04/23 blood sugar diagnostic (FreeStyle #100 strips 06/27/23 09/04/23 Lite Strips) amoxicillin 875 mg-potassium 1 tab PO BID sinusitis #14 tabs 06/28/23 09/04/23 clavulanate 125 mg tablet tirzepatide 5 mg/0.5 mL 5 mg (0.5 mL) subcut QWEEK #2 mL 06/28/23 09/04/23 subcutaneous pen injector insulin aspart U-100 100 unit/mL 5 unit (0.05 mL) subcut TID #15 mL 08/15/23 09/04/23 (3 mL) subcutaneous pen (Novolog FlexPen U-100 Insulin aspart) insulin glargine U-300 conc 300 88 unit (0.2933 mL) subcut DAILY 08/15/23 09/04/23 unit/mL (3 mL) subcutaneous pen #99 mL (Toujeo Max U-300 SoloStar) pantoprazole 40 mg tablet,delayed 40 mg PO DAILY #90 tab-caps 08/15/23 09/04/23 release tamsulosin 0.4 mg capsule 0.4 mg PO HS #90 tab-caps 08/15/23 09/04/23 pen needle, diabetic 29 gauge x #100 ea 09/03/23 09/04/23 1/2 (BD Ultra-Fine Original Pen Needle) Previous Rx's Medication Instructions Recorded allopurinol 100 mg tablet 200 mg (2 x 100 mg) PO DAILY #180 09/30/22 tab-caps blood-glucose transmitter (Dexcom #1 ea 10/30/22 G6 Transmitter device) pregabalin 50 mg capsule (Lyrica) 50 mg PO BID #60 caps 12/21/22 blood-glucose meter,continuous #1 ea 01/05/23 (Dexcom G6 Marina Manager) blood-glucose sensor (Dexcom G6 #3 ea 01/05/23 Sensor device) cyclobenzaprine 10 mg tablet 10 mg PO TID PRN muscle spasm #14 04/12/23 tabs lisinopril 10 mg tablet 10 mg PO DAILY #90 tabs 05/16/23 blood sugar diagnostic (FreeStyle #100 strips 06/27/23 Lite Strips) amoxicillin 875 mg-potassium 1 tab PO BID sinusitis #14 tabs 06/28/23 clavulanate 125 mg tablet tirzepatide 5 mg/0.5 mL 5 mg (0.5 mL) subcut QWEEK #2 mL 06/28/23 subcutaneous pen injector insulin aspart U-100 100 unit/mL 5 unit (0.05 mL) subcut TID #15 mL 08/15/23 (3 mL) subcutaneous pen (Novolog FlexPen U-100 Insulin aspart) insulin glargine U-300 conc 300 88 unit (0.2933 mL) subcut DAILY 08/15/23 unit/mL (3 mL) subcutaneous pen #99 mL (Toujeo Max U-300 SoloStar) pantoprazole 40 mg tablet,delayed 40 mg PO DAILY #90 tab-caps 08/15/23 release tamsulosin 0.4 mg capsule 0.4 mg PO HS #90 tab-caps 08/15/23 pen needle, diabetic 29 gauge x #100 ea 09/03/2307/31 (BD Ultra-Fine Original Pen Needle) Allergies Allergy/AdvReac Type Severity Reaction Status Date / Time nitroglycerin AdvReac Severe 6 sec Verified 09/04/23 23:23 heart pause zolpidem AdvReac Severe Hallucinati Verified 09/04/23 23:23 ons fluoxetine AdvReac Intermediate Tremor Verified 09/04/23 23:23 gabapentin AdvReac Intermediate fatigue Verified 09/04/23 23:23 levetiracetam [From Keppra] AdvReac Intermediate Restless Verified 09/04/23 23:23 sulfamethoxazole AdvReac Intermediate Verified 09/04/23 23:23 [From Bactrim] tirzepatide AdvReac Intermediate gastropares Verified 09/04/23 23:23 is trimethoprim [From Bactrim] AdvReac Intermediate Verified 09/04/23 23:23 General Stated Complaint: Nausea/Vomit/Diar FABIO: 3 Review of Systems All systems reviewed & are unremarkable except as noted in HPI and below Exam Narrative Exam Narrative: 1.Const: Well-nourished, Well-developed, appearing stated age 2.Eyes: PERRL, no conjunctival injection, and symmetrical lids. 3.ENT: Atraumatic external nose and ears. Notably dry MM. Neck: Symmetric, trachea midline, No thyromegaly. 4.CVS: +S1/S2, No murmurs or gallops. Peripheral pulses 2+ and equal in all extremities. Brisk capillary refill in all extremities. 5.RESP: Unlabored respiratory effort. Clear to auscultation bilaterally. No wheezes rales or rhonchi 6.GI: Soft, Nontender/Nondistended, No hepatosplenomegaly. No guarding or rebound. No focal tenderness throughout. 7.MSK: Normocephalic/Atraumatic, Extremities w/o deformity or ttp No cyanosis or clubbing, Normal movement of all extremities 8.Skin: Warm, Dry. No rashes or lesions. 9.Neuro: wine maker II-XII grossly intact. Sensation grossly intact, no focal neurologic deficits. 10.Psych: (AAO) x3. Appropriate mood and affect Course Vital Signs Vital signs: Vital Signs Temperature 36.8 C 09/04/23 22:37 Pulse 88 09/04/23 22:37 Respiratory Rate 16 09/04/23 22:37 Blood Pressure 175/95 H 09/04/23 22:37 Pulse Oximetry 98 09/04/23 22:37 Temperature 36.8 C 09/04/23 22:37 Temperature Source Temporal Artery Scan 09/04/23 22:37 Pulse 88 09/04/23 22:37 Respiratory Rate 16 09/04/23 22:37 Blood Pressure 175/95 H 09/04/23 22:37 Blood Pressure Position Supine 09/04/23 22:37 Pulse Oximetry 98 09/04/23 22:37 Pain Level 0 09/04/23 22:37 Lab/Test Results Lab/Test Results: Laboratory Tests Range/Units 09/04/23 22:50 WBC (4.4-10.8) 10^3/uL 8.31 RBC (4.36-5.78) 10^6/uL 4.43 Hgb (13.5-17.5) g/dL 14.4 Hct (40.0-50.0) % 41.7 MCV (80-95) fL 94 MCH (27.0-33.0) pg 32.5 MCHC (32.0-36.0) % 34.5 RDW (11.8-14.1) % 11.5 L Plt Count (130-400) 10^3/uL 205 MPV (8.0-11.0) fL 9.3 Immature Gran % 0.5 Neutrophils % 82.1 Lymphocytes % 7.8 Monocytes % 6.6 Eosinophils % 2.4 Basophils % 0.6 Nucleated RBC % (0.0-0.3) % 0.0 Absolute Neutrophils (1.2-6.7) 10^3/uL 6.82 H Absolute Lymphocytes (1.2-3.4) 10^3/uL 0.65 L Absolute Monocytes (0.1-0.8) 10^3/uL 0.55 Absolute Eosinophils (0.0-0.7) 10^3/uL 0.20 Absolute Basophils (0.0-0.2) 10^3/uL 0.05 Medical Decision Making This is a very pleasant 58-year-old male with an extensive past medical history of previous chronic subdural hematoma with cranial surgery and it is being monitored at [facility], and multiple abdominal surgeries, appendectomy, cholecystectomy, duodenal perforation, Oren procedure, Daysi-en-Y procedure with jejunostomy, previous abdominal wound infection, history of both gastroparesis and dumping syndrome ironically, diabetes on insulin, who presents today for evaluation of diarrhea. Patient states that he has had chronic diarrhea since last April. It is been persistent and watery in nature. Patient was on Mounjaro for control of his diabetes, there was concern that this may have been a component of his diarrhea. He stopped this just over a month ago. Unfortunately this did not change his symptoms. He comes in tonight because there is a notable worsening of his diarrhea. He had a cooked hamburger earlier today, and then a can of tuna fish this evening. Diarrhea began this morning and was profuse. He has had 25 episodes of watery diarrhea. The nature of the stooling has been consistent since April however the frequency is notably increased. Patient is scheduled to see Dr. Stewart his hand cutter apprentice later this month, but has not been able to yet. Of note on historical questioning, the patient does state that he did travel in early April to [place], where he did eat out some. The onset of the initial diarrhea appears to be around there somewhere. The diarrhea has never been bloody. Tonight he did get lightheaded but did not syncopized. He denies any vision changes headache or chest pain. He admits to some mild abdominal achiness but no focal abdominal pain. He denies any recent antibiotic use. Last antibiotic that was used was Augmentin over 2 months ago for sinus infection. Patient has no other complaints at this time. Exam demonstrates well-appearing male, vital signs stable. No significant tachycardia, mucous membranes notably dry. No focal abdominal tenderness on exam. No neurologic deficits on assessment. EKG shows no evidence of significant dysrhythmia or STEMI. Abdominal exam is notably benign with no evidence of an acute surgical abdomen. Symptoms appear inconsistent with mesenteric ischemia. Clinical history appears to be inconsistent with severe infectious diarrhea with no blood, however a potential mild infectious etiology is on the differential with his previous travel back in April and his increased risk of infection with his previous Mounjaro use. Today's worsening of his symptoms may be secondary to a viral enteritis which is certainly quite prevalent in the community right now, however differential also includes foodborne etiology less likely colitis, or potentially episodic dumping syndrome. We will rehydrate, we will get a CT scan to rule out colitis, we will evaluate for electrolyte abnormalities, will monitor closely and reassess. We will test for stool borne infectious etiologies as well today. C. difficile differentiation will be noted today, however the remainder of the stool studies are send out test. 1:24 AM Laboratory workup has returned, no white count, bandemia, or significant left shift. Normal pH, no evidence of DKA. Electrolytes normal, BUN high at 25 with a creatinine of 0.9 suggesting prerenal azotemia/dehydration. Lipase normal. On reassessment patient is feeling much better. EKG normal. No hypotension or dysrhythmias here. Patient has not had any bowel movements here, and he does still demonstrate active bowel sounds. No evidence of gastroparesis post dumping. Patient feels well, stable for discharge. Since he has not had any bowel movements here we will give him a order form for outpatient labs for stool studies and stool cultures. Recommend probiotic at home to be used regularly. Patient certainly does not show evidence of toxic megacolon septic shock, or an acute surgical abdomen. However I am hesitant to start him on an antimotility agent until we have culture and C. difficile results back. The patient's antigastro paresis agent can certainly also be a component of his chronic diarrhea, as can some of his diabetic medications and his pantoprazole. However I do not think that they should be changed acutely at this time. Recommend continued hydration at home and close follow-up with his hand cutter apprentice Dr. Stewart. Discussed red flags for which to return. I have extensively reviewed the treatment plan and discharge instructions with the patient. I have addressed all patient concerns at this time. The patient was made aware of what symptoms to monitor for that would warrant a return to the emergency department. Discussed the plan with the patient, they demonstrate verbal understanding and agreement with our assessment and plan at this time. The documentation in this chart was dictated using Linkua dictation software. Please excuse any dictation errors. FINDINGS: Limitations: Mild motion artifact. Liver: No focal hepatic lesion identified. Gallbladder and bile ducts: Cholecystectomy. Pancreas: No CT evidence for acute pancreatitis. Spleen: No splenomegaly. Adrenal glands: Mild adrenal thickening. Kidneys and ureters: Left renal cyst. Small nonobstructing bilateral renal calculi. Stomach and bowel: Prior bowel surgeries. No intestinal obstruction is evident. Fluid in nondilated small bowel, nonspecific. Fluid-filled colon consistent with history of diarrhea. Areas of apparent mural thickening in the colon commensurate with underdistention. Appendix: No evidence of appendicitis Intraperitoneal space: No free air. Vasculature: No abdominal aortic aneurysm. Lymph nodes: Nonspecific mesenteric lymph nodes. Urinary bladder: No acute findings. Reproductive: Enlarged prostate. Bones/joints: No pertinent acute abnormality seen. Soft tissues: No pertinent acute abnormality seen. IMPRESSION: 1. Fluid-filled large and small bowel, nonspecific but suggestive of mild inflammation. 2. Nonacute findings as outlined above. Thank you for allowing us to participate in the care of your patient. Dictated and Authenticated by: Halley Leary MD 09/05/2023 12:40 AM Eastern Time ([place] & [place]) Quality:SDOH Health Related Social Needs: No Data to Display PFSH All Active Problems (Updated 09/05/23 @ 01:26 by Mehul Rider DO) Dehydration (Acute) Diarrhea (Acute) Diarrhea (Acute) Left shoulder pain (Acute) Sinusitis (Acute) Skin tags, multiple acquired (Acute) Sensation of fullness in right ear (Acute) Sebaceous cyst (Acute) Skin lesions, generalized (Acute) Fatigue (Acute) Folliculitis (Acute) chronic and intermittent- scalp only Gastroparesis (Acute) 2021- see Dr. Patti Sanabria,, continue domperidone Numbness of both lower extremities (Acute) Lumbar back pain with radiculopathy affecting lower extremity (Acute) Pain, joint, lower leg, left (Acute) Hyperlipidemia (Acute) Diabetic neuropathy associated with type 2 diabetes mellitus (Acute) Diabetes (Chronic) Borderline control; insulin dependent Essential hypertension (Chronic 06/05/13) Gout (Chronic) a. 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) Medical History Subdural hematoma Bursitis of right shoulder Impingement syndrome of right shoulder Bursitis of left shoulder Impingement syndrome of left shoulder Tendinitis of long head of biceps brachii of right shoulder Tendinitis of long head of biceps brachii of left shoulder Traumatic tear of right rotator cuff COVID-19 (~06/10/21) 05/2021 Traumatic injury of shoulder 2004, completed PT 2013 recommended surgery Chondromalacia patellae of right knee Chondromalacia patellae of left knee Osteoarthritis of right knee Osteoarthritis of left knee Esophageal foreign body 2019- meat stuck took 1 year to recover Acquired obstruction of pylorus 2014/15- 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 DENT Other specified postprocedural states A. 2013 Daysi-en-Y bypass surgery for chronic duodenal ulcer with pyloric obstruction Social History Smoking/Tobacco Use Status: Never Second Hand Exposure: No Smoking risk assessment performed?: Yes Alcohol Intake: current Alcohol Intake frequency: a few times a week Alcohol type: beer Drug use: Never Substance use type: does not use Caregiver/Support person: No Household members: spouse Pets and animals: Yes Pets and animals: dog(s) Sexually active: Yes Do you think of yourself as: straight/heterosexual Current gender identity: male What is your relationship status?: How often do you talk on the phone with friends or family?: three or more times per week How often do you get together with friends or relatives?: once per week How often do you attend rastafari or mormon services?: decline to answer Do you belong to any clubs or organized social groups?: yes Panel score (0-1 are the most socially isolated patients): 3 Marina/Sikhism: Sabianism Special marina needs: No Seatbelt use: always Helmet use: Yes Helmet use: always Drive intox or ride w/intox garbage collector driver: No Do you feel safe at home: Yes Do you feel safe in your relationship?: Yes Victim of physical abuse: No Victim of emotional abuse: No Victim of sexual abuse: No Would you like helpful sources: No Discharge Plan Disposition Patient Disposition: Home Discharge Details Clinical Impression: Diarrhea, Dehydration Primary Care Provider: Nain Mcgovern ED Provider: Mehul Rider Home Meds and New Rx's Prescriptions: No Action pregabalin [Lyrica] 50 mg capsule 50 mg PO BID Qty: 60 2RF tirzepatide 5 mg/0.5 mL pen injector 5 mg subcut QWEEK Qty: 2 5RF Hold Instructions: Changed by Provider amoxicillin-pot clavulanate 875-125 mg tablet 1 tab PO BID Qty: 14 0RF cyclobenzaprine 10 mg tablet 10 mg PO TID PRN (Reason: muscle spasm) Qty: 14 0RF Toujeo Max U-300 SoloStar 300 unit/mL (3 mL) insulin pen 88 unit subcut DAILY Qty: 99 3RF Rx Instructions: dose reduce 03/20/23 insulin aspart U-100 [Novolog FlexPen U-100 Insulin] 100 unit/mL (3 mL) insulin pen 5 unit subcut TID Qty: 15 3RF pantoprazole 40 mg tablet,delayed release (DR/EC) 40 mg PO DAILY Qty: 90 4RF tamsulosin 0.4 mg capsule 0.4 mg PO HS Qty: 90 3RF Domperidone 10 mg PO BID Rx Instructions: Takes 10mg bid triamcinolone acetonide 0.1 % cream 1 applic topical PRN Rx Instructions: Use for 2 weeks. Stop medication if not improved in two weeks and have recheck. (DME) lancets [FreeStyle Lancets] 1 EACH misc 1 ea Miscellaneous BID Qty: 200 allopurinol 100 mg tablet 200 mg PO DAILY Qty: 180 4RF (DME) Dexcom G6 Transmitter Device See Rx Instructions .ROUTE .MEDSUPPLY Qty: 1 11RF Rx Instructions: As directed (DME) Dexcom G6 Marina Manager Misc See Rx Instructions .ROUTE .MEDSUPPLY Qty: 1 4RF Rx Instructions: As directed (DME) Dexcom G6 Sensor Device See Rx Instructions .ROUTE .MEDSUPPLY Qty: 3 4RF Rx Instructions: As directed lisinopril 10 mg tablet 10 mg PO DAILY Qty: 90 3RF (DME) FreeStyle Lite Strips Strip 1 ea Miscellaneous BID Qty: 100 3RF Rx Instructions: Dx: E11.9 (DME) pen needle, diabetic [BD Ultra-Fine Orig Pen Needle] 29 gauge x 1/2 needle 1 ea Miscellaneous BID Qty: 100 12RF Rx Instructions: 1 SC TID Zyrtec 10 MG capsule 10 mg PO HS acetaminophen [Mapap Extra Strength] 500 MG tablet 1,000 mg PO Q6H PRN Discharge Instructions Instructions: Dehydration (ED) Additional Instructions: At this time your workup has returned relatively stable. There is no evidence of significant infection, your electrolytes are stable. You were dehydrated. Please continue drinking fluids and stay well-hydrated at home during these episodes of continued diarrhea. Please take a probiotic or take yogurt with live culture to help improve your gut eden. Please bring back a stool sample for infection testing. Please follow-up closely with your hand cutter apprentice. If you notice any worsening of your symptoms, or any new symptoms such as vomiting, diarrhea, fever, chills, shortness of breath, chest pain, numbness, weakness, or fainting , please return immediately to the emergency department for reevaluation. Please follow up with your primary care provider as soon as possible for reassessment and reevaluation. As always, it was a pleasure participating in your medical care today. Referrals: Pedro Dent [ NON-[facility] STAFF PHYSICIAN] - Nain Mcgovern MD [Primary Care Provider] -
--- NOTE | 2023-09-04 23:00 | DI.CT_ITS ---
Exam(s) CT ABDOMEN PELVIS W EXAM: CT ABDOMEN PELVIS W CLINICAL HISTORY: profuse diarrhea, r/o colitis. TECHNIQUE: Imaging Protocol: Axial computed tomography images with coronal and sagittal reformatted images were created and reviewed CONTRAST MATERIAL: Intravenous: Omnipaque-350 100cc Oral: None COMPARISON: CT CT ABDOMEN WO/W from 10/30/2022 FINDINGS: VISUALIZED LUNG BASES: No nodules nor pleural effusions evident. ABDOMEN: There is no ascites. GI: There is evidence of prior bariatric surgery with a Daysi limb gastro enterostomy coming off of th e distal stomach. The Daysi limb is dilated to 3.3 cm. There are fluid-filled non collapsed bowel lo ops distal to the enteroenterostomy/distal anastomosis. There is fluid also noted in the colon. Col on is not collapsed. LIVER: There are no focal hepatic lesions evident. No dilated intrahepatic ducts. GALLBLADDER/BILIARY: The gallbladder surgically absent. CBD is not dilated. PANCREAS: No evidence of pancreatic mass nor dilatation of the pancreatic duct. SPLEEN: Spleen size upper normal. No splenic lesions. Splenic and portal veins are patent. ADRENALS: There are no significant adrenal masses. KIDNEYS:There is a 6.5 x 6 cm cyst in the left kidney. This benign cyst does not require further wor kup. There is a tiny nonobstructive 1 millimeter calculus in the lower pole calyx of the left kidney also noted. No solid renal masses. ABDOMINAL AORTA: Abdominal aorta is not enlarged. LYMPH NODES:There is no retroperitoneal nor paraaortic adenopathy. ABDOMINAL WALL: No evidence of significant anterior abdominal wall nor inguinal hernia. GI: There is no evidence of bowel obstruction, free air, nor abscess. PELVIS: GI: Appendix is surgically absent.No evidence of sigmoid diverticulitis. LYMPH NODES: There is no intrapelvic nor inguinal adenopathy. REPRODUCTIVE: Prostate size normal. URINARY BLADDER: No calculi nor obvious masses evident OSSEOUS: No fractures and no significant osseous lesions. IMPRESSION: 1. There is evidence of prior bariatric surgery. There is mild dilatation of the Daysi limb. The sma ll bowel loops beyond the distal anastomosis exhibit normal diameter but are fluid-filled, as is the colon. Suspect infectious process such as enteritis. There does not appear to be a high-grade bowel obstruction. 2. Prior cholecystectomy. Biliary tree is not dilated. RADIATION DOSE DELIVERED: 1,400.09mGy.cm Total DLP DATA REPOSITORY: All CT scans at this facility are submitted to the National Radiology Data Registry (NRDR) Dose Index Registry (DIR) with the [employer] (ACR). RADIATION OPTIMIZATION: All CT scans at this facility use at least one of these dose optimization te chniques: automated exposure control; mA and/or kV adjustment per patient size (includes targeted exa ms where dose is matched to clinical indication); or iterative reconstruction.
[2023-09-04 23:13] LABS: ALT 52 U/L (16-63); AST 25 U/L (15-37); Albumin 4.4 g/dL (3.4-5.0); Alkaline Phosphatase 53 U/L (46-116); Anion Gap 12.6 mmol/L (3-11); BUN 25 mg/dL (7-18); Bilirubin, Total 0.4 mg/dL (0.2-1.0); CO2 20.4 mmol/L (21.0-32.0); CREATININE 0.9 mg/dL (0.70-1.30); Calcium 9.2 mg/dL (8.5-10.1); Chloride 105 mmol/L (98-107); Estimated GFR 97.78 (mL/min/1.73m2); Glucose 153 mg/dL (74-106); Lipase 25 U/L (16-77); Magnesium 1.8 mg/dL (1.8-2.4); Potassium 4.1 mmol/L (3.5-5.1); Sodium 138 mmol/L (136-145); Total Protein 7.9 g/dL (6.4-8.2)
[2023-09-04 23:14] LABS: BE (Venous) -5 mmol/L (-2-3); HCO3 (Venous) 21 mmol/L (23-28); O2 Sat (Venous) 85 %; TCO2 (Venous) 19 mmol/L (24-29); pCO2 (Venous) 38 mmHg (41-51); pH (Venous) 7.34 (7.31-7.41); pO2 (Venous) 48 mmHg
[2023-09-04] MEDS: Omnipaque 350 MG/ML 100 ML BTL IJ (23:27)
[2023-09-04] MEDS: Normal Saline Flush 10 ML SYR IVP (23:28)
[2023-09-04] MEDS: Normal Saline - Diluent 50 ML VIAL IJ (23:28)
--- NOTE | 2023-09-05 00:41 | DI.VRAD_ITS ---
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 Radiation optimization: All CT scans at this facility use at least one of these dose optimization techniques: automated exposure control; mA and/or kV adjustment per patient size (includes targeted exams where dose is matched to clinical indication); or iterative reconstruction. Contrast material: OMNIPAQUE 350; Contrast volume: 100 ml; Contrast route: INTRAVENOUS (IV); COMPARISON: CT ABDOMEN WO/W 10/30/2022 2:18 PM FINDINGS: Limitations: Mild motion artifact. Liver: No focal hepatic lesion identified. Gallbladder and bile ducts: Cholecystectomy. Pancreas: No CT evidence for acute pancreatitis. Spleen: No splenomegaly. Adrenal glands: Mild adrenal thickening. Kidneys and ureters: Left renal cyst. Small nonobstructing bilateral renal calculi. Stomach and bowel: Prior bowel surgeries. No intestinal obstruction is evident. Fluid in nondilated small bowel, nonspecific. Fluid-filled colon consistent with history of diarrhea. Areas of apparent mural thickening in the colon commensurate with underdistention. Appendix: No evidence of appendicitis. Intraperitoneal space: No free air. Vasculature: No abdominal aortic aneurysm. Lymph nodes: Nonspecific mesenteric lymph nodes. Urinary bladder: No acute findings. Reproductive: Enlarged prostate. Bones/joints: No pertinent acute abnormality seen. Soft tissues: No pertinent acute abnormality seen. IMPRESSION: 1. Fluid-filled large and small bowel, nonspecific but suggestive of mild inflammation. 2. Nonacute findings as outlined above. Dictated and Authenticated by: Halley Leary MD. Ordering:ALONSO Carver MD
== END 2023-09-05 01:48 | disposition home or self-care (01) ==
PROVIDERS: Emergency Provider Student in an Organized Health Care Education/Training Program; PCP Family Medicine
DX: R19.7 Diarrhea, unspecified (principal); E86.0 Dehydration; I10 Essential (primary) hypertension; E11.40 Type 2 diabetes mellitus with diabetic neuropathy, unspecified; Z90.49 Acquired absence of other specified parts of digestive tract; Z79.4 Long term (current) use of insulin; Z98.84 Bariatric surgery status
CPT/HCPCS: 80053; 82805; 83690; 93005; 96360; 99285; 74177; 83605; 83735; 85025; 93010; 99284; J3490

== ENCOUNTER 2023-09-06 08:51 | Outpatient (REF) | payer BC, SELFPAY ==
[2023-09-06 10:51] LABS: C Diff PCR Negative (Negative)
[2023-09-06 23:14] LABS: Campylobacter PCR Negative (Negative); Salmonella PCR Negative (Negative); Shiga Toxin PCR Negative (Negative); Shigella/Enteroinvasive Ecoli Negative (Negative)
== END 2023-09-06 08:52 | disposition home or self-care (01) ==
LOC: LBN 08:51
PROVIDERS: PCP Family Medicine; Visit Provider Student in an Organized Health Care Education/Training Program
DX: R19.7 Diarrhea, unspecified (principal)
CPT/HCPCS: 87493; 87505

== ENCOUNTER 2023-09-10 12:03 | Outpatient (REF) | payer BC, SELFPAY ==
[2023-09-16 01:28] LABS: Lactoferrin, Qt, Stool 12.77 mcg/mL (<7.25)
== END 2023-09-10 12:04 | disposition home or self-care (01) ==
LOC: LBN 12:03
PROVIDERS: PCP Family Medicine; Visit Provider Internal Medicine Gastroenterology
DX: R19.7 Diarrhea, unspecified (principal); K92.2 Gastrointestinal hemorrhage, unspecified
CPT/HCPCS: 83631; 87329; 87177

== ENCOUNTER 2024-02-19 18:20 | Outpatient (REF) | payer BC, SELFPAY ==
[2024-02-19 13:52] LABS: COMMENT (LAB VIEW ONLY) 152.08 mg/dL
== END 2024-02-19 18:21 | disposition home or self-care (01) ==
LOC: LBN 18:20
PROVIDERS: PCP Family Medicine; Visit Provider Family Medicine
DX: E11.9 Type 2 diabetes mellitus without complications (principal)
CPT/HCPCS: 82043; 82570

== ENCOUNTER 2024-04-03 15:37 | Outpatient (CLI) | payer BC, SELFPAY ==
--- NOTE | 2024-04-03 | DI.RAD_ITS ---
Exam(s) XR HAND LT COMPLETE EXAM: XR HAND LT COMPLETE CLINICAL HISTORY: PAIN, TRAUMA 5 WEEKS AGO, FOCUS ON 3RD AND 4TH FINGERS. TECHNIQUE: 2D digital imaging was performed. COMPARISON: CR RIGHT HAND COMPLETE from 05/27/2012 FINDINGS: 3 views There is a fracture on the medial base of the middle phalanx of the 4th-ring finger. This fracture i nvolves the proximal interphalangeal joint surface. The fracture fragment measures 5 x 4 mm with mil d displacement. There is no fracture evident in the adjacent head of the proximal phalanx of the 4th finger. There is some mild surrounding soft tissue swelling. In the 3rd-middle finger there is some swelling around the PIP joint also noted. Small 2 millimeter calcific density seen off of the medial aspect of the proximal interphalangeal joint of the 3rd finge r which may be a small avulsion fragment given that there is soft tissue swelling around this region. If this is a small fracture fragment is difficult to determine if this is off the medial aspect of the head of the proximal phalanx or adjacent base of the middle phalanx. There are no significant acute radiographic findings in the 2nd and 5th fingers. Degenerative change s in the DIP joint of the 5th finger noted as is some degenerative change in the DIP joint of the 2nd -index finger. IMPRESSION: Fractures as above. Most obvious is at the base of the middle phalanx of the 4th-ring finger DATA REPOSITORY: RADIATION DOSE DELIVERED:
--- NOTE | 2024-04-03 | DI.RAD_ITS ---
Exam(s) XR HAND RT COMPLETE EXAM: XR HAND RT COMPLETE CLINICAL HISTORY: PAIN, TRAUMA 5 WEEKS AGO, FOCUS ON 3RD AND 4TH FINGERS. TECHNIQUE: 2D digital imaging was performed. COMPARISON: CR RIGHT HAND COMPLETE from 05/27/2012 CR XR HAND LT COMPLETE from 04/03/2024 FINDINGS: 3 views There are similar appearing osteophytic densities evident off the medial aspects of the bases of the middle phalanges of the 3rd and 4th-ring fingers with some overlying soft tissue swelling. However, these appear corticated and therefore doubtful for acute or subacute recent fractures. Correlation w ith site of tenderness is recommended. There is a tiny 1 mm calcification adjacent to the medial asp ect of the head of the middle phalanx of the 3rd-middle finger. This does not have the appearance of an acute fracture fragment. There are some degenerative changes in the DIP joints of the 2nd-index and 3rd fingers. There is no radiopaque foreign body. IMPRESSION: Soft tissue swelling osseous findings around the PIP joints of the 3rd and 4th fingers of the right h and but doubtful for acute fractures given the corticated appearance the bone densities at these leve ls. DATA REPOSITORY: RADIATION DOSE DELIVERED:
== END 2024-04-03 15:57 ==
PROVIDERS: PCP Family Medicine; Visit Provider Chiropractor
DX: M79.641 Pain in right hand (principal); M79.642 Pain in left hand
CPT/HCPCS: 73130

== ENCOUNTER 2024-05-20 09:36 | Outpatient (CLI) | payer BC, SELFPAY ==
[2024-05-20 12:34] LABS: HCT 41.7 % (40.0-50.0); HGB 13.9 g/dL (13.5-17.5); MCH 32.9 pg (27.0-33.0); MCHC 33.3 % (32.0-36.0); MCV 99 fL (80-95); MPV 10.3 fL (8.0-11.0); Platelet Count 185 10^3/uL (130-400); RBC 4.22 10^6/uL (4.36-5.78); RDW 11.5 % (11.8-14.1); RDW-SD 41.6 fL; WBC 4.51 10^3/uL (4.4-10.8)
[2024-05-20 12:56] LABS: TSH (W/Ref FT4) 1.68 uIU/mL (0.36-3.74); Uric Acid 3.7 mg/dL (3.5-7.2)
[2024-05-20 13:04] LABS: Hemoglobin A1C 6.1 % (<5.7)
[2024-05-20 13:35] LABS: Vitamin B12 488 pg/mL (193-986)
== END 2024-05-20 09:37 | disposition home or self-care (01) ==
LOC: LOS 09:37
PROVIDERS: PCP Family Medicine; Referring Provider Family Medicine; Visit Provider Family Medicine
DX: E03.9 Hypothyroidism, unspecified (principal); E11.51 Type 2 diabetes mellitus with diabetic peripheral angiopathy without gangrene; I70.209 Unspecified atherosclerosis of native arteries of extremities, unspecified extremity; R53.83 Other fatigue; D64.9 Anemia, unspecified; M10.9 Gout, unspecified; Z23 Encounter for immunization; Z79.4 Long term (current) use of insulin; E66.9 Obesity, unspecified
CPT/HCPCS: 36415; 85027; 82607; 83036; 84443; 84550

== ENCOUNTER 2024-12-02 08:39 | Outpatient (CLI) | payer OTHER, SELFPAY ==
[2024-12-02 12:44] LABS: Abs Immature Grans 0.01 10^3/uL (0.0-0.06); Absolute Basophil Count 0.05 10^3/uL (0.0-0.2); Absolute Eosinophil Count 0.15 10^3/uL (0.0-0.7); Absolute Lymphocyte Count 0.87 10^3/uL (1.2-3.4); Absolute Monocyte Count 0.37 10^3/uL (0.1-0.8); Absolute Neutrophil Count 3.34 10^3/uL (1.2-6.7); Eosinophils % 3.1 %; HCT 42.5 % (40.0-50.0); HGB 14.6 g/dL (13.5-17.5); Immature Grans % 0.2 %; Lymphocytes % 18.2 %; MCH 33.5 pg (27.0-33.0); MCHC 34.4 % (32.0-36.0); MCV 98 fL (80-95); MPV 9.9 fL (8.0-11.0); Monocytes % 7.7 %; Neutrophils % 69.8 %; Platelet Count 200 10^3/uL (130-400); RBC 4.36 10^6/uL (4.36-5.78); RDW 11.4 % (11.8-14.1); RDW-SD 41.1 fL; WBC 4.79 10^3/uL (4.4-10.8)
[2024-12-02 13:07] LABS: ALT 48 U/L (16-63); AST 28 U/L (15-37); Albumin 4.1 g/dL (3.4-5.0); Alkaline Phosphatase 65 U/L (46-116); Anion Gap 7.2 mmol/L (3-11); BUN 18 mg/dL (7-18); Bilirubin, Total 0.4 mg/dL (0.2-1.0); CO2 27.8 mmol/L (21.0-32.0); CREATININE 0.8 mg/dL (0.70-1.30); Calcium 9.2 mg/dL (8.5-10.1); Calculated LDL 63 mg/dL (<100); Chloride 106 mmol/L (98-107); Cholesterol 125 mg/dL (<200); Estimated GFR 100.69 (mL/min/1.73m2); Glucose 164 mg/dL (74-106); HDL Cholesterol 43 mg/dL (>or=40); Potassium 4.2 mmol/L (3.5-5.1); Sodium 141 mmol/L (136-145); Total Protein 7.3 g/dL (6.4-8.2); Triglyceride 96 mg/dL (<150)
[2024-12-02 13:21] LABS: Lipase 35 U/L (<78)
== END 2024-12-02 08:40 | disposition home or self-care (01) ==
LOC: LOS 08:39
PROVIDERS: PCP Family Medicine; Referring Provider Family Medicine; Visit Provider Family Medicine
DX: D64.9 Anemia, unspecified (principal); R10.9 Unspecified abdominal pain; E78.5 Hyperlipidemia, unspecified
CPT/HCPCS: 80053; 80061; 83690; 85025

== ENCOUNTER 2025-01-01 16:49 | Emergency (ER) | payer OTHER, SELFPAY ==
--- NOTE | 2025-01-01 16:45 | RT.EKG_ITS ---
APPROVED REPORT Exam: Resting ECG Reason for Exam: SOB Patient Location: E HR:99 bpm ECG Measurements Heart Rate 99 AXIS VT 181 P 29 QRSd 96 QRS 5 QT 354 T 15 QTc 455 Conclusion Sinus rhythm...normal P axis, V-rate 60- 99 No Occlusion UT
[2025-01-01 16:57] VITALS: BP 118/78; PULSE 97; RESP 22; TEMP 36.6; O2SAT 95
--- NOTE | 2025-01-01 17:00 | DI.RAD_ITS ---
Exam(s) XR CHEST 2V PA LATERAL EXAM: XR CHEST 2V PA LATERAL CLINICAL HISTORY: SOB, COUGH. TECHNIQUE: 2D digital imaging was performed. COMPARISON: CT CT ABDOMEN PELVIS W from 09/04/2023 FINDINGS: 2 views: Heart size is normal. The mediastinum is not widened. Left lung is clear. There is a mass density in the right hilar-infrahilar region measuring approxima tely 2.5 x 2 cm. Projected over the posteromedial aspect of the right 7th rib. There is a possibly that this is a large right-sided spinal osteophyte but cannot exclude lung/hilar mass. There are als o no prior chest x-rays for comparison in our PACS nor chest CT scans for comparison. No confluent infiltrates. No pleural effusions. IMPRESSION: 2 cm right sided mass as described above. CT scan recommended to determine if this is lung mass or p araspinal mass or large bridging osteophyte in the thoracic spinal column. DATA REPOSITORY: RADIATION DOSE DELIVERED:
--- NOTE | 2025-01-01 17:11 | ED.GENADUL_ITS ---
Discharge Plan Disposition Patient Disposition: Home Condition: Stable Discharge Details Clinical Impression: Upper respiratory infection, viral, Dehydration Primary Care Provider: Nain Mcgovern ED Provider: Flaquita Valencia Home Meds and New Rx's Prescriptions: New albuterol sulfate 90 mcg/actuation HFA aerosol inhaler 2 puff IH QID PRN (Reason: shortness of breath or wheezing) Qty: 8 0RF Rx Instructions: Take 1 to 2 puffs every 4-6 hours as needed for shortness of breath, cough or wheezing Continued insulin glargine U-300 conc [Toujeo Max U-300 SoloStar] 300 unit/mL (3 mL) insulin pen 50 unit subcut DAILY Qty: 99 3RF Rx Instructions: dose reduction 02/19/24 due to lows Domperidone 10 mg PO DAILY Rx Instructions: Takes 10mg bid triamcinolone acetonide 0.1 % cream 1 applic topical PRN Rx Instructions: Use for 2 weeks. Stop medication if not improved in two weeks and have recheck. allopurinol 100 mg tablet 200 mg PO DAILY Qty: 180 4RF pantoprazole 40 mg tablet,delayed release (DR/EC) 40 mg PO DAILY Qty: 90 4RF insulin lispro [Humalog KwikPen Insulin] 100 unit/mL insulin pen 1 sliding scale dose subcut TID Patient Comments: INJECT 6 TO 13 UNITS UNDER THE SKIN THREE TIMES A DAY WITH MEALS (DME) pen needle, diabetic [BD Dee 2nd Gen Pen Needle] 32 gauge x 5/32 needle See Rx Instructions .ROUTE .MEDSUPPLY Qty: 1200 Patient Comments: USE ONE PEN NEEDLE FIVE TIMES DAILY DIRECTED Rx Instructions: As directed (DME) blood-glucose meter [Accu-Chek Guide Glucose Meter] Misc See Rx Instructions .MEDSUPPLY Qty: 1 0RF Rx Instructions: As directed (DME) Accu-Chek Guide test strips Strip See Rx Instructions .MEDSUPPLY Qty: 100 3RF Rx Instructions: test daily (DME) lancets Misc See Rx Instructions .MEDSUPPLY Qty: 100 4RF Rx Instructions: Check blood sugar once a day (DME) Dexcom G7 Sensor Device See Rx Instructions .Route Qty: 3 12RF Rx Instructions: As directed (DME) Dexcom G7 Traveling Electrician Misc See Rx Instructions .ROUTE .MEDSUPPLY Qty: 1 11RF Rx Instructions: As directed (DME) lancets [FreeStyle Lancets] 1 EACH misc 1 ea Miscellaneous BID Qty: 200 (DME) FreeStyle Lite Strips Strip 1 ea Miscellaneous BID Qty: 100 3RF Rx Instructions: Dx: E11.9 lisinopril 10 mg tablet 10 mg PO DAILY Qty: 90 3RF tamsulosin 0.4 mg capsule 0.4 mg PO HS Qty: 90 3RF tirzepatide 10 mg/0.5 mL pen injector 10 mg subcut QWEEK Qty: 2 2RF Zyrtec 10 MG capsule 10 mg PO HS acetaminophen [Mapap Extra Strength] 500 MG tablet 1,000 mg PO Q6H PRN Discharge Instructions Instructions: Viral Upper Respiratory Infection, Adult (DC), Dehydration, Adult ED Additional Instructions: At this time there is no evidence for pneumonia on the images of your chest, no elevated white blood cell count, you do appear to be somewhat dehydrated. Please increase oral fluids over the next 3 to 5 days. Sodium was also a little bit low. Please continue to use the albuterol inhaler 1 or 2 puffs every 4-6 hours as needed. No evidence of heart attack or, negative for COVID flu and RSV swab Follow up with primary care provider in 3-5 days. Return to ED sooner if any worsening or concerns. Thank you for allowing us to care for you today. Referrals: Nain Mcgovern MD [Primary Care Provider] - 3 days HPI General Mode of arrival: ambulatory . Date/Time Provider Initiated Documentation: 01/01/25 17:00 . Limitations to Documentation: no limitations . Information obtained by: patient, RN notes reviewed and old records reviewed . HPI Narrative: 59-year-old male presents to the ER with a chief complaint of continued URI type symptoms for the last 2 weeks. Patient has been seen twice in urgent care placed on Augmentin and then azithromycin which he finished yesterday. He also has been on prednisone and albuterol inhaler. He continues to have productive cough intermittent fevers, wheezing and chest tightness. He does have shortness of breath with exertion. Last used albuterol this morning. He is complaining of chest tightness and lower back pain. He does have a past medical history of type 2 diabetes, obstructive sleep apnea, hypertension, gastroparesis, gout. Related Data Home Medications ?Medication ?Instructions ?Recorded ?Confirmed cetirizine 10 mg capsule (Zyrtec) 10 mg PO HS 06/16/16 01/01/25 lancets 28 gauge (FreeStyle #200 ea 12/22/16 01/01/25 Lancets) Domperidone 10 mg PO DAILY 02/07/19 01/01/25 acetaminophen 500 mg tablet (Mapap 1,000 mg PO Q6H PRN 07/20/19 01/01/25 Extra Strength) triamcinolone acetonide 0.1 % 1 applic topical PRN 11/08/21 01/01/25 topical cream blood sugar diagnostic (FreeStyle #100 strips 06/27/23 01/01/25 Lite Strips) lisinopril 10 mg tablet 10 mg PO DAILY #90 tabs 05/05/24 01/01/25 insulin glargine U-300 conc 300 50 unit (0.1667 mL) subcut DAILY 05/20/24 01/01/25 unit/mL (3 mL) subcutaneous pen #99 mL (Toujeo Max U-300 SoloStar) allopurinol 100 mg tablet 200 mg (2 x 100 mg) PO DAILY #180 08/28/24 01/01/25 tab-caps blood sugar diagnostic (Accu-Chek #100 ea 08/28/24 01/01/25 Guide test strips) blood-glucose meter (Accu-Chek #1 ea 08/28/24 01/01/25 Guide Glucose Meter) insulin lispro 100 unit/mL 1 sliding scale dose subcut TID 08/28/24 01/01/25 subcutaneous pen (Humalog KwikPen (U-100) Insulin) lancets #100 ea 08/28/24 01/01/25 pantoprazole 40 mg tablet,delayed 40 mg PO DAILY #90 tab-caps 08/28/24 01/01/25 release pen needle, diabetic 32 gauge x #1,200 ea 08/28/24 01/01/25 (BD Dee 2nd Gen Pen Needle) tamsulosin 0.4 mg capsule 0.4 mg PO HS #90 tab-caps 10/14/24 01/01/25 blood-glucose sensor ([employer] G7 #3 ea 05/06/25 06/05/25 Sensor device) blood-glucose,spa receptionist,cont #1 ea 12/02/24 01/01/25 (Dexcom G7 Traveling Electrician) tirzepatide 10 mg/0.5 mL 10 mg (0.5 mL) subcut QWEEK #2 mL 12/29/24 01/01/25 subcutaneous pen injector albuterol sulfate 90 mcg/actuation 2 puff inhalation QID PRN 01/01/25 aerosol inhaler shortness of breath or wheezing #8 grams Previous Rx's ?Medication ?Instructions ?Recorded blood sugar diagnostic (FreeStyle #100 strips 06/27/23 Lite Strips) lisinopril 10 mg tablet 10 mg PO DAILY #90 tabs 05/05/24 insulin glargine U-300 conc 300 50 unit (0.1667 mL) subcut DAILY 05/20/24 unit/mL (3 mL) subcutaneous pen #99 mL (Toujeo Max U-300 SoloStar) allopurinol 100 mg tablet 200 mg (2 x 100 mg) PO DAILY #180 08/28/24 tab-caps blood sugar diagnostic (Accu-Chek #100 ea 08/28/24 Guide test strips) blood-glucose meter (Accu-Chek #1 ea 08/28/24 Guide Glucose Meter) lancets #100 ea 08/28/24 pantoprazole 40 mg tablet,delayed 40 mg PO DAILY #90 tab-caps 08/28/24 release tamsulosin 0.4 mg capsule 0.4 mg PO HS #90 tab-caps 10/14/24 blood-glucose sensor (Dexcom G7 #3 ea 12/02/24 Sensor device) blood-glucose,spa receptionist,cont #1 ea 12/02/24 (Dexcom G7 Traveling Electrician) tirzepatide 10 mg/0.5 mL 10 mg (0.5 mL) subcut QWEEK #2 mL 12/29/24 subcutaneous pen injector albuterol sulfate 90 mcg/actuation 2 puff inhalation QID PRN 01/01/25 aerosol inhaler shortness of breath or wheezing #8 grams Allergies Allergy/AdvReac Type Severity Reaction Status Date / Time ciprofloxacin Allergy Other (See Verified 01/01/25 16:52 Comment) nitroglycerin AdvReac Severe 6 sec Verified 01/01/25 16:52 heart pause zolpidem AdvReac Severe Hallucinati Verified 01/01/25 16:52 ons fluoxetine AdvReac Intermediate Tremor Verified 01/01/25 16:52 gabapentin AdvReac Intermediate fatigue Verified 01/01/25 16:52 levetiracetam (From Keppra) AdvReac Intermediate Restless Verified 01/01/25 16:52 sulfamethoxazole (From AdvReac Intermediate Unknown Verified 01/01/25 16:52 Bactrim) tirzepatide AdvReac Intermediate gastropares Verified 01/01/25 16:52 is trimethoprim (From Bactrim) AdvReac Intermediate Unknown Verified 01/01/25 16:52 statins AdvReac Intermediate myalgia Uncoded 01/01/25 16:52 General Stated Complaint: SOB FABIO: 3 Review of Systems All systems reviewed & are unremarkable except as noted in HPI and below ENT Ears, Nose, Mouth, and Throat: Reports dizziness Cardiovascular Cardiovascular: Reports chest pain, Reports lightheadedness and Reports dyspnea on exertion Respiratory Respiratory: Reports chest congestion, Reports cough, Denies hemoptysis, Reports dyspnea on exertion and Reports wheezing Neurologic Neurologic: Reports dizziness Allergic/Immunologic Allergic/Immunologic: Reports wheezing Exam Narrative Exam Narrative: Constitutional: Alert and oriented x3. Appears stated age. Normal body habitus. Head: Normocephalic, no trauma. Eyes: Pupils PERRL, Red reflex noted, EOM's intact. Eyelids symmetrical without lesions, discharge, or swelling. ENT: Bilateral TM's WNL, External ear normal to inspection, no mastoid TTP, swelling, or erythema, Nasal turbinates WNL, no nasal discharge. Normal dentition, Posterior pharynx WNL, no exudate. Chest: RRR, Normal S1, S2, distal pulses intact. Resp: Scattered expiratory wheezes in the bases bilaterally. Abdomen: Soft, non-distended, Normoactive bowel sounds all 4 quads. Musculoskeletal: Normal gait, Moves all 4 extremities without difficulty. Skin: No suspicious rashes or lesions. Capillary refill less than 2 sec. Neurologic: Cranial nerves II-XII intact. Alert and oriented x 3. Motor: No deficits noted. Sensory: Intact bilaterally all 4 extremities. Hematologic/Lymphatic: No ecchymosis, no lymphadenopathy. Course Vital Signs Vital signs: Vital Signs Temperature 36.6 C 01/01/25 16:57 Pulse 97 H 01/01/25 16:57 Respiratory Rate 22 06/05/25 16:57 Blood Pressure 118/78 01/01/25 16:57 Pulse Oximetry 95 01/01/25 16:57 Temperature 36.6 C 01/01/25 16:57 Temperature Source Oral 01/01/25 16:57 Pulse 97 H 01/01/25 16:57 Respiratory Rate 22 01/01/25 16:57 Blood Pressure 118/78 01/01/25 16:57 Blood Pressure Position Sitting 01/01/25 16:57 Pulse Oximetry 95 01/01/25 16:57 Oxygen Delivery Method Room Air 01/01/25 16:57 Oxygen Flow Rate 0 01/01/25 16:57 Pain Level 0 01/01/25 16:57 Medical Decision Making 59-year-old male presents to the ER with a chief complaint of continued URI type symptoms for the last 2 weeks. Patient has been seen twice in urgent care placed on Augmentin and then azithromycin which he finished yesterday. He also has been on prednisone and albuterol inhaler. He continues to have productive cough intermittent fevers, wheezing and chest tightness. He does have shortness of breath with exertion. Last used albuterol this morning. He is complaining of chest tightness and lower back pain. He does have a past medical history of type 2 diabetes, obstructive sleep apnea, hypertension, gastroparesis, gout. Workup ordered including EKG, serial troponins, D-dimer lipase, proBNP chest x- ray and fluid swab. Differential diagnosis includes not limited to CAD, ID, NSTEMI, pneumonia, viral respiratory illness, PE. EKG was reviewed by Dr. Lazo and myself ER attending, normal sinus rhythm, no significant ischemic changes. Old EKG available for review. Please see official report. Workup is largely unremarkable. Chest x-ray shows a questionable right hilar mass they do recommend CT chest. CT chest without contrast ordered, this was found to be thoracic osteophytes, no hilar masses and no infiltrates no evidence of pneumonia. Sodium slightly low at 135 BUN 23 creatinine 0.9 GFR 97 glucose 190. Troponins are within normal limits proBNP within normal limits negative COVID flu RSV. Discussed results and home care with patient and family who verbalized understanding. I did instruct him to continue using his albuterol inhaler as previously prescribed. No need for antibiotics at this time I do suspect viral URI. No evidence of ACS at this time. Discussed strict return instructions and follow-up with PCP. Patient remained hemodynamically stable alert and oriented throughout the remainder of his stay. This text was generated using [employer] system, please disregard any oddities of phrase or misspellings. Medical Records Medical records reviewed: Yes I reviewed the patient's medical records. Lab Data Lab results reviewed: Yes I reviewed the patient's lab results. Labs: Laboratory Tests Range/Units 01/01/25 01/01/25 01/01/25 17:25 17:33 18:23 WBC (4.4-10.8) 10^3/uL 10.10 RBC (4.36-5.78) 10^6/uL 4.73 Hgb (13.5-17.5) g/dL 15.3 Hct (40.0-50.0) % 44.4 MCV (80-95) fL 94 MCH (27.0-33.0) pg 32.3 MCHC (32.0-36.0) % 34.5 RDW (11.8-14.1) % 11.3 L Plt Count (130-400) 10^3/uL 301 MPV (8.0-11.0) fL 9.1 Immature Gran % % 0.6 Neutrophils % % 87.4 Lymphocytes % % 7.9 Monocytes % % 3.7 Eosinophils % % 0.1 Basophils % % 0.3 Nucleated RBC % (0.0-0.3) % 0.0 Absolute Neutrophils (1.2-6.7) 10^3/uL 8.83 H Absolute Lymphocytes (1.2-3.4) 10^3/uL 0.80 L Absolute Monocytes (0.1-0.8) 10^3/uL 0.37 Absolute Eosinophils (0.0-0.7) 10^3/uL 0.01 Absolute Basophils (0.0-0.2) 10^3/uL 0.03 D-Dimer (<500) ng/mlFEU 222 Sodium (136-145) mmol/L 135 L Potassium (3.5-5.1) mmol/L 4.3 Chloride (98-107) mmol/L 100 Carbon Dioxide (21.0-32.0) mmol/L 22.1 Anion Gap (3-11) mmol/L 12.9 H BUN (7-18) mg/dL 23 H Creatinine (0.70-1.30) mg/dL 0.9 Est GFR (CKD-EPI 2020) (mL/min/1.73m2) 97.17 Glucose (74-106) mg/dL 190 H Calcium (8.5-10.1) mg/dL 9.5 Magnesium (1.8-2.4) mg/dL 2.1 Total Bilirubin (0.2-1.0) mg/dL 0.9 AST (15-37) U/L 17 ALT (16-63) U/L 37 Alkaline Phosphatase (46-116) U/L 67 Troponin I (<or=76) ng/L 4 < 4 NT-Pro-B Natriuret Pep (<300) pg/mL 28 Total Protein (6.4-8.2) g/dL 7.7 Albumin (3.4-5.0) g/dL 4.3 COVID-19 Source Nasopharynx SARS-CoV-2 (PCR) (Negative) Negative Influenza Type A (PCR) (Negative) Negative Influenza Type B (PCR) (Negative) Negative RSV (PCR) (Negative) Negative Range/Units 01/01/25 20:09 WBC (4.4-10.8) 10^3/uL RBC (4.36-5.78) 10^6/uL Hgb (13.5-17.5) g/dL Hct (40.0-50.0) % MCV (80-95) fL MCH (27.0-33.0) pg MCHC (32.0-36.0) % RDW (11.8-14.1) % Plt Count (130-400) 10^3/uL MPV (8.0-11.0) fL Immature Gran % % Neutrophils % % Lymphocytes % % Monocytes % % Eosinophils % % Basophils % % Nucleated RBC % (0.0-0.3) % Absolute Neutrophils (1.2-6.7) 10^3/uL Absolute Lymphocytes (1.2-3.4) 10^3/uL Absolute Monocytes (0.1-0.8) 10^3/uL Absolute Eosinophils (0.0-0.7) 10^3/uL Absolute Basophils (0.0-0.2) 10^3/uL D-Dimer (<500) ng/mlFEU Sodium (136-145) mmol/L Potassium (3.5-5.1) mmol/L Chloride (98-107) mmol/L Carbon Dioxide (21.0-32.0) mmol/L Anion Gap (3-11) mmol/L BUN (7-18) mg/dL Creatinine (0.70-1.30) mg/dL Est GFR (CKD-EPI 2020) (mL/min/1.73m2) Glucose (74-106) mg/dL Calcium (8.5-10.1) mg/dL Magnesium (1.8-2.4) mg/dL Total Bilirubin (0.2-1.0) mg/dL AST (15-37) U/L ALT (16-63) U/L Alkaline Phosphatase (46-116) U/L Troponin I (<or=76) ng/L Cancelled NT-Pro-B Natriuret Pep (<300) pg/mL Total Protein (6.4-8.2) g/dL Albumin (3.4-5.0) g/dL COVID-19 Source SARS-CoV-2 (PCR) (Negative) Influenza Type A (PCR) (Negative) Influenza Type B (PCR) (Negative) RSV (PCR) (Negative) Quality:SDOH Health Related Social Needs: No Data to Display PFSH All Active Problems (Updated 01/01/25 @ 20:00 by Flaquita Valencia NP) Dehydration (Acute) Upper respiratory infection, viral (Acute) Dupuytren contracture (Acute) Hyperlipidemia with target LDL less than 100 (Acute) Diarrhea (Acute) Left shoulder pain (Acute) Sinusitis (Acute) Skin tags, multiple acquired (Acute) Sensation of fullness in right ear (Acute) Sebaceous cyst (Acute) Skin lesions, generalized (Acute) Fatigue (Acute) Folliculitis (Acute) chronic and intermittent- scalp only Gastroparesis (Acute) 2021- see Dr. Patti Sanabria,, continue domperidone Numbness of both lower extremities (Acute) Lumbar back pain with radiculopathy affecting lower extremity (Acute) Pain, joint, lower leg, left (Acute) Hyperlipidemia (Acute) Diabetic neuropathy associated with type 2 diabetes mellitus (Acute) Diabetes (Chronic) Borderline control; insulin dependent Essential hypertension (Chronic 06/05/13) Gout (Chronic) a. 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 (Chronic) Medical History Subdural hematoma Bursitis of right shoulder Impingement syndrome of right shoulder Bursitis of left shoulder Impingement syndrome of left shoulder Tendinitis of long head of biceps brachii of right shoulder Tendinitis of long head of biceps brachii of left shoulder Traumatic tear of right rotator cuff COVID-19 (~06/10/21) 05/2021 Traumatic injury of shoulder 2003, completed PT 2013 recommended surgery Chondromalacia patellae of right knee Chondromalacia patellae of left knee Osteoarthritis of right knee Osteoarthritis of left knee Esophageal foreign body 2019- meat stuck took 1 year to recover Acquired obstruction of pylorus - 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 DENT Other specified postprocedural states A. 2013 Daysi-en-Y bypass surgery for chronic duodenal ulcer with pyloric obstruction Social History Smoking/Tobacco Use Status: Never Second Hand Exposure: No Smoking risk assessment performed?: Yes Alcohol Intake: current Alcohol Intake frequency: a few times a week Alcohol type: hard liquor Drug use: Never Substance use type: does not use Counseling given: No Caregiver/Support person: No Household members: spouse Pets and animals: Yes Pets and animals: dog(s) Sexually active: Yes Do you think of yourself as: straight/heterosexual Current gender identity: male What is your relationship status?: How often do you talk on the phone with friends or family?: three or more times per week How often do you get together with friends or relatives?: once per week How often do you attend lutheran or episcopalian services?: decline to answer Do you belong to any clubs or organized social groups?: yes Panel score (0-1 are the most socially isolated patients): 3 Marina/Confucianist: Jew Special marina needs: No Seatbelt use: always Helmet use: Yes Helmet use: always Drive intox or ride w/intox stacker driver: No Do you feel safe at home: Yes Do you feel safe in your relationship?: Yes Victim of physical abuse: No Victim of emotional abuse: No Victim of sexual abuse: No Would you like helpful sources: No
[2025-01-01 17:36] VITALS: BP 118/78; PULSE 97; RESP 22; TEMP 36.6; O2SAT 95
[2025-01-01 17:36] LABS: Abs Immature Grans 0.06 10^3/uL (0.0-0.06); Absolute Basophil Count 0.03 10^3/uL (0.0-0.2); Absolute Eosinophil Count 0.01 10^3/uL (0.0-0.7); Absolute Monocyte Count 0.37 10^3/uL (0.1-0.8); Absolute Neutrophil Count 8.83 10^3/uL (1.2-6.7); Basophils % 0.3 %; Eosinophils % 0.1 %; HCT 44.4 % (40.0-50.0); HGB 15.3 g/dL (13.5-17.5); Immature Grans % 0.6 %; Lymphocytes % 7.9 %; MCH 32.3 pg (27.0-33.0); MCHC 34.5 % (32.0-36.0); MCV 94 fL (80-95); MPV 9.1 fL (8.0-11.0); Monocytes % 3.7 %; Neutrophils % 87.4 %; Platelet Count 301 10^3/uL (130-400); RBC 4.73 10^6/uL (4.36-5.78); RDW 11.3 % (11.8-14.1); RDW-SD 38.9 fL
[2025-01-01] MEDS: Albuterol/Ipratropium 3 ML UPD VIAL UPD (17:43)
--- NOTE | 2025-01-01 18:00 | DI.CT_ITS ---
Exam(s) CT CHEST WO EXAM: CT CHEST WO CLINICAL HISTORY: Right hilar mass. TECHNIQUE: Multi planar reconstructions were performed. CONTRAST MATERIAL: None COMPARISON: No exams were available for comparison FINDINGS: CHEST: LUNGS: No infiltrates nor masses nor pleural effusions. The finding on the chest x-rays explained by a large bridging right-sided spinal column osteophyte. MEDIASTINUM: There is no obvious hilar nor mediastinal adenopathy. No obvious axillary adenopathy CARDIAC: Heart size is normal. There is no pericardial effusion.Caliber of the thoracic aorta is wit hin normal limits. VISUALIZED UPPER ABDOMEN:No adrenal masses. Partially included cyst in the anterior aspect of the le ft kidney measures 4 cm. OSSEOUS: Multilevel large bridging osteophytes in the thoracic spinal column. One of these on the ri ght side explains finding on chest x-ray. There are no compression fractures. No listhesis. No oss eous lesions.. IMPRESSION: 1. No significant pulmonary findings. 2. The finding on chest x-ray is demonstrated to be a large right-sided bridging osteophyte in the th oracic spinal column on this CT scan. Report called by myself to ER provider 01/01/2025 at 7:30 p.m. RADIATION DOSE DELIVERED: 393.27mGy.cm Total DLP DATA REPOSITORY: All CT scans at this facility are submitted to the National Radiology Data Registry (NRDR) Dose Index Registry (DIR) with the [employer] (ACR). RADIATION OPTIMIZATION: All CT scans at this facility use at least one of these dose optimization te chniques: automated exposure control; mA and/or kV adjustment per patient size (includes targeted exa ms where dose is matched to clinical indication); or iterative reconstruction.
[2025-01-01 18:05] LABS: D-Dimer 222 ng/mlFEU (<500)
[2025-01-01 18:08] LABS: ALT 37 U/L (16-63); AST 17 U/L (15-37); Albumin 4.3 g/dL (3.4-5.0); Alkaline Phosphatase 67 U/L (46-116); Anion Gap 12.9 mmol/L (3-11); BUN 23 mg/dL (7-18); Bilirubin, Total 0.9 mg/dL (0.2-1.0); CO2 22.1 mmol/L (21.0-32.0); CREATININE 0.9 mg/dL (0.70-1.30); Calcium 9.5 mg/dL (8.5-10.1); Chloride 100 mmol/L (98-107); Estimated GFR 97.17 (mL/min/1.73m2); Glucose 190 mg/dL (74-106); Magnesium 2.1 mg/dL (1.8-2.4); NT-proBNP 28 pg/mL (<300); Potassium 4.3 mmol/L (3.5-5.1); Sodium 135 mmol/L (136-145); Total Protein 7.7 g/dL (6.4-8.2); Troponin I 4 ng/L (<or=76)
[2025-01-01 18:13] LABS: COVID-19 PCR Negative (Negative); Influenza A PCR Negative (Negative); Influenza B PCR Negative (Negative); RSV PCR Negative (Negative)
[2025-01-01 18:19] LABS: Source Nasopharynx
[2025-01-01 18:56] LABS: Troponin I < 4 ng/L (<or=76)
[2025-01-01 20:22] VITALS: BP 119/83; PULSE 86; RESP 16; O2SAT 98
== END 2025-01-01 20:23 | disposition home or self-care (01) ==
PROVIDERS: Emergency Provider Registered Nurse Emergency; PCP Family Medicine
DX: J06.9 Acute upper respiratory infection, unspecified (principal); E86.0 Dehydration
CPT/HCPCS: 99284 ×2; 94640; 36415; 71250; 80053; 87637; 93005; 71046; 83735; 83880; 84484; 85025; 85379; 93010; J7620

== ENCOUNTER 2025-02-19 08:39 | Outpatient (CLI) | payer OTHER, SELFPAY ==
[2025-02-19 17:50] LABS: PSA, Screening 0.4 ng/mL (<=4.5)
[2025-02-19 18:30] LABS: Hepatitis C Ab w Rflx HCV PCR Negative (Negative)
[2025-02-19 18:49] LABS: HBs Antibody, Quant <3.1 mIU/mL (See Note); Hepatitis B Surface Antigen Negative (Negative)
[2025-02-19 18:50] LABS: HIV-1/2 Ag & Ab Screen Negative (Negative)
== END 2025-02-19 08:40 | disposition home or self-care (01) ==
PROVIDERS: PCP Family Medicine; Referring Provider Family Medicine; Visit Provider Family Medicine
DX: Z12.5 Encounter for screening for malignant neoplasm of prostate (principal); Z11.59 Encounter for screening for other viral diseases
CPT/HCPCS: 36415; 84153; 86704; 86706; 86803; 87340; 87389